=== PATIENT | female | born 1980 | race Caucasian/White ===

== ENCOUNTER 2021-06-29 19:08 | Emergency (ER) | payer OTHER ==
--- NOTE | 2021-06-29 19:16 | ERPHSYRPT ---
- History of Present Illness Time Seen by Provider: 06/29/21 19:16 Historian: patient Exam Limitations: no limitations Physician History: This is a 40-year-old obese white female who underwent appendectomy several years ago and presents with abdominal pain which she describes as right upper quadrant pressure but she also feels it in her lower back into her buttock post eriorly into her legs. She describes as a pressure. It is worse in the last several years. She does not have chest pain. She has not had any nausea vomiting or diarrhea. She does have a history of anxiety and depression. Timing/Duration: worse, other (Present for years) Abdominal Pain Onset Location: RUQ Pain Radiation: back Severity of Pain-Max: mild Severity of Pain-Current: mild Modifying Factors: Improves With: nothing Associated Symptoms: back, No chest pain, No fever/chills, No neck pain, No shortness of breath, No vomiting Previous symptoms: same symptoms as today, no recent treatment Allergies/Adverse Reactions: No Known Drug Allergies Allergy (Verified 06/29/21 19:36) Home Medications: No Reportable Medications [No Reported Medications] 06/29/21 [History] Hx Tetanus, Diphtheria Vaccination/Date Given: Yes Hx Influenza Vaccination/Date Given: No Hx Pneumococcal Vaccination/Date Given: No Travel Risk - International Travel Have you traveled outside of the country in past 3 weeks: No - Coronavirus Screening Are you exhibiting any of the following symptoms?: No Close contact with a COVID-19 positive Pt in past 14-21 Days: No - Review of Systems Constitutional: No Symptoms Eyes: No Symptoms Ears, Nose, & Throat: No Symptoms Respiratory: No Symptoms Cardiac: No Symptoms Abdominal/Gastrointestinal: Abdominal Pain, No Nausea, No Vomiting, No Diarrhea, No Constipation Genitourinary Symptoms: No Symptoms Musculoskeletal: Back Pain Skin: No Symptoms Neurological: No Symptoms Psychological: No Symptoms Endocrine: No Symptoms Hematologic/Lymphatic: No Symptoms Immunological/Allergic: No Symptoms All Other Systems: Reviewed and Negative - Past Medical History Pertinent Past Medical History: No Neurological History: No Pertinent History ENT History: No Pertinent History Cardiac History: No Pertinent History Respiratory History: No Pertinent History Endocrine Medical History: No Pertinent History Musculoskeletal History: No Pertinent History GI Medical History: No Pertinent History History: No Pertinent History Psycho-Social History: Anxiety, Depression Female Reproductive Disorders: No Pertinent History, Other - Past Surgical History Past Surgical History: Yes Neuro Surgical History: No Pertinent History Cardiac: No Pertinent History Respiratory: No Pertinent History Gastrointestinal: Appendectomy Genitourinary: No Pertinent History Musculoskeletal: No Pertinent History Female Surgical History: Other Other Surgical History: dermoid tumor age 14, ectopic - Social History Smoking Status: Former smoker Exposure to second hand smoke: No Drug Use: none Patient Lives Alone: No - Nursing Vital Signs Nursing Vital Signs: Initial Vital Signs Temperature 97.8 F 06/29/21 19:17 Pulse Rate 103 H 06/29/21 19:17 Respiratory Rate 16 06/29/21 19:17 Blood Pressure 101/75 06/29/21 19:17 O2 Sat by Pulse Oximetry 97 06/29/21 19:17 Pain Scale Pain Intensity 0 - Physical Exam General Appearance: no apparent distress, alert, anxiety, obese Eye Exam: PERRL/EOMI, eyes nml inspection Ears, Nose, Throat Exam: normal ENT inspection, moist mucous membranes Neck Exam: normal inspection, non-tender, supple, full range of motion Respiratory Exam: normal breath sounds, lungs clear, airway intact, No chest tenderness, No respiratory distress Cardiovascular Exam: regular rate/rhythm, normal heart sounds, normal peripheral pulses Gastrointestinal/Abdomen Exam: soft, normal bowel sounds, tenderness (Mild right upper quadrant to palpation), No guarding, No rebound Pelvic Exam: not done Rectal Exam: not done Back Exam: normal inspection, normal range of motion, No CVA tenderness, No vertebral tenderness Extremity Exam: normal inspection, normal range of motion, pelvis stable Neurologic Exam: alert, oriented x 3, cooperative, 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, normal mood/affect, nml cerebellar function, nml station & gait, sensation nml Skin Exam: normal color, warm, dry Lymphatic Exam: adenopathy SpO2 Interpretation: normal O2 Delivery: Room Air - Course Nursing assessment & vital signs reviewed: Yes Ordered Tests: Active Orders 24 hr Category Date Time Status IV Insertion STAT Care 06/29/21 19:27 Active ABDOMEN AND PELVIS W/0 CONTRAS [CT] Stat Exams 06/29/21 19:27 Taken AMYLASE Stat Lab 06/29/21 19:46 Completed CBC W DIFF Stat Lab 06/29/21 19:46 Completed CMP Stat Lab 06/29/21 19:46 Completed LIPASE Stat Lab 06/29/21 19:46 Completed Lactic Acid Stat Lab 06/29/21 19:35 Completed UA W/RFX UR CULTURE Stat Lab 06/29/21 19:36 Completed Medication Summary Discontinued Medications Generic Name Dose Route Start Last Admin Trade Name Elliott PRN Reason Stop Dose Admin Sodium Chloride 1,000 mls @ 999 mls/hr 06/29/21 19:27 06/29/21 20:40 Sodium Chloride 0.9% 1000 Ml IV 06/29/21 20:27 Infused .Q1H1M STA Infusion Sodium Chloride Confirm 06/29/21 19:37 Sodium Chloride 0.9% 1000 Ml Administered 06/29/21 19:38 Dose 1,000 mls @ ud .ROUTE .STK-MED ONE Ondansetron HCl 4 mg 06/29/21 19:27 06/29/21 19:39 Ondansetron Hcl 4 Mg/2 Ml Vial IV 06/29/21 19:28 4 mg STAT ONE Administration Ondansetron HCl Confirm 06/29/21 19:37 Ondansetron Hcl 4 Mg/2 Ml Vial Administered 06/29/21 19:38 Dose 4 mg .ROUTE .STK-MED ONE Lab/Rad Data: Laboratory Result Diagrams 06/29/21 19:46 06/29/21 19:46 Laboratory Results 06/29/21 06/29/21 06/29/21 Range/Units 19:46 19:46 19:36 WBC 11.0 H (4.0-10.5) K/mm3 RBC 4.98 (4.1-5.4) M/mm3 Hgb 13.4 (12.0-16.0) gm/dl Hct 42.6 (35-47) % MCV 85.5 (78-100) fl MCH 26.9 (26-32) pg MCHC 31.5 L (32-36) g/dl RDW 15.0 H (11.5-14.0) % Plt Count 350 (150-450) K/mm3 MPV 8.9 (7.5-11.0) fl Gran % 64.9 (36.0-66.0) % Eos # (Auto) 0.30 (0-0.5) Absolute Lymphs (auto) 2.97 (1.0-4.6) Absolute Monos (auto) 0.56 (0.0-1.3) Lymphocytes % 27.0 (24.0-44.0) % Monocytes % 5.1 (0.0-12.0) % Eosinophils % 2.7 (0.00-5.0) % Basophils % 0.3 (0.0-0.4) % Absolute Granulocytes 7.13 H (1.4-6.9) Basophils # 0.03 (0-0.4) Sodium 139 (137-145) mmol/L Potassium 3.8 (3.5-5.1) mmol/L Chloride 105 (98-107) mmol/L Carbon Dioxide 25 (22-30) mmol/L Anion Gap 12.7 (5-15) MEQ/L BUN 14 (7-17) mg/dL Creatinine 0.81 (0.52-1.04) mg/dL Estimated GFR > 60.0 ML/MIN Glucose 104 (74-106) mg/dL Lactic Acid (0.4-2.0) Calcium 8.6 (8.4-10.2) mg/dL Total Bilirubin 0.20 (0.2-1.3) mg/dL AST 21 (14-36) U/L ALT 22 (0-35) U/L Alkaline Phosphatase 119 (38-126) U/L Serum Total Protein 6.1 L (6.3-8.2) g/dL Albumin 3.6 (3.5-5.0) g/dL Amylase 43 (30-110) U/L Lipase 131 (23-300) U/L Urine Color YELLOW (YELLOW) Urine Appearance SLIGHTLY CLOUDY (CLEAR) Urine pH 5.0 (5-6) Ur Specific [place] 1.026 (1.005-1.025) Urine Protein NEGATIVE (Negative) Urine Ketones NEGATIVE (NEGATIVE) Urine Blood NEGATIVE (0-5) [place]/ul Urine Nitrite NEGATIVE (NEGATIVE) Urine Bilirubin NEGATIVE (NEGATIVE) Urine Urobilinogen 2 (0-1) mg/dL Ur Leukocyte Esterase NEGATIVE (NEGATIVE) Urine WBC (Auto) NONE (0-5) /HPF Urine RBC (Auto) NONE (0-2) /HPF U Epithel Cells (Auto) RARE (FEW) /HPF Urine Bacteria (Auto) NONE (NEGATIVE) /HPF Urine Mucus (Auto) SLIGHT (NEGATIVE) /HPF Urine Culture Reflexed NO (NO) Urine Glucose NEGATIVE (NEGATIVE) mg/dL 06/29/21 Range/Units 19:35 WBC (4.0-10.5) K/mm3 RBC (4.1-5.4) M/mm3 Hgb (12.0-16.0) gm/dl Hct (35-47) % MCV (78-100) fl MCH (26-32) pg MCHC (32-36) g/dl RDW (11.5-14.0) % Plt Count (150-450) K/mm3 MPV (7.5-11.0) fl Gran % (36.0-66.0) % Eos # (Auto) (0-0.5) Absolute Lymphs (auto) (1.0-4.6) Absolute Monos (auto) (0.0-1.3) Lymphocytes % (24.0-44.0) % Monocytes % (0.0-12.0) % Eosinophils % (0.00-5.0) % Basophils % (0.0-0.4) % Absolute Granulocytes (1.4-6.9) Basophils # (0-0.4) Sodium (137-145) mmol/L Potassium (3.5-5.1) mmol/L Chloride (98-107) mmol/L Carbon Dioxide (22-30) mmol/L Anion Gap (5-15) MEQ/L BUN (7-17) mg/dL Creatinine (0.52-1.04) mg/dL Estimated GFR ML/MIN Glucose (74-106) mg/dL Lactic Acid 1.4 (0.4-2.0) Calcium (8.4-10.2) mg/dL Total Bilirubin (0.2-1.3) mg/dL AST (14-36) U/L ALT (0-35) U/L Alkaline Phosphatase (38-126) U/L Serum Total Protein (6.3-8.2) g/dL Albumin (3.5-5.0) g/dL Amylase (30-110) U/L Lipase (23-300) U/L Urine Color (YELLOW) Urine Appearance (CLEAR) Urine pH (5-6) Ur Specific [place] (1.005-1.025) Urine Protein (Negative) Urine Ketones (NEGATIVE) Urine Blood (0-5) [place]/ul Urine Nitrite (NEGATIVE) Urine Bilirubin (NEGATIVE) Urine Urobilinogen (0-1) mg/dL Ur Leukocyte Esterase (NEGATIVE) Urine WBC (Auto) (0-5) /HPF Urine RBC (Auto) (0-2) /HPF U Epithel Cells (Auto) (FEW) /HPF Urine Bacteria (Auto) (NEGATIVE) /HPF Urine Mucus (Auto) (NEGATIVE) /HPF Urine Culture Reflexed (NO) Urine Glucose (NEGATIVE) mg/dL - Progress Progress: unchanged, pain not gone completely, re-examined Progress Note: 06/29/21 20:53 CAT scan of the abdomen and pelvis without contrast shows a markedly distended stomach with food. Mild diffuse fecal stasis. Interval enlarging right perium bilical fatty ventral hernia remaining AP negative. No mention of any obstructed bowel. Counseled pt/family regarding: lab results, diagnosis, need for follow-up, rad results - Departure Departure Disposition: Home Clinical Impression: Ventral hernia, Chronic abdominal pain, Constipation Condition: Stable Critical Care Time: No Referrals: KAR CHAMBERLAIN [Primary Care Provider] - Follow up/PCP as directed Additional Instructions: Drink plenty of fluids. May use [id number] medications to help stimulate your bowels to move including MiraLAX, fleets enemas. Follow-up with your primary care physician for further management.
[2021-06-29] MEDS ORDERED: Zofran 4 MG/2 ML VIAL IV ONE (19:27)
[2021-06-29] MEDS ORDERED: Sodium Chloride 0.9% 1000 ML 1,000 ML IV STA (19:27)
[2021-06-29] MEDS ORDERED: Zofran 4 MG/2 ML VIAL ONE (19:37)
[2021-06-29] MEDS ORDERED: Sodium Chloride 0.9% 1000 ML 1,000 ML ONE (19:37)
[2021-06-29 19:50] LABS: Absolute Neutrophil Ct (ANC) 7.13 (1.4-6.9); Basophil (Absolute #) 0.03 (0-0.4); Eosinophil % 2.7 % (0.00-5.0); Hematocrit 42.6 % (35-47); Hemoglobin 13.4 gm/dl (12.0-16.0); Lymphocyte (Absolute #) 2.97 (1.0-4.6); Mean Cell Volume 85.5 fl (78-100); Mean Corpuscular Hemoglobin 26.9 pg (26-32); Mean Corpuscular Hgb Concent. 31.5 g/dl (32-36); Mean Platelet Volume 8.9 fl (7.5-11.0); Monocyte (Absolute #) 0.56 (0.0-1.3); Monocytes % 5.1 % (0.0-12.0); Neutrophil % 64.9 % (36.0-66.0); Platelet Count 350 K/mm3 (150-450); Red Blood Count 4.98 M/mm3 (4.1-5.4)
[2021-06-29 19:51] LABS: Appearance SLIGHTLY CLOUDY (CLEAR); Bilirubin NEGATIVE (NEGATIVE); Blood NEGATIVE Ery/ul (0-5); Epithelial Cells RARE /HPF (FEW); Glucose NEGATIVE (NEGATIVE); Ketones NEGATIVE (NEGATIVE); Leukocyte Esterase NEGATIVE (NEGATIVE); Mucus SLIGHT /HPF (NEGATIVE); Nitrite NEGATIVE (NEGATIVE); Protein,Urine Dip NEGATIVE (Negative); Specific Gravity 1.026 (1.005-1.025); Urobilinogen 2 mg/dL (0-1)
[2021-06-29 20:06] LABS: ALBUMIN 3.6 g/dL (3.5-5.0); ALKALINE PHOSPHATASE 119 U/L (38-126); AMYLASE 43 U/L (30-110); ANION GAP 12.7 MEQ/L (5-15); BLOOD UREA NITROGEN 14 mg/dL (7-17); CHLORIDE 105 mmol/L (98-107); Calcium 8.6 mg/dL (8.4-10.2); Carbon Dioxide 25 mmol/L (22-30); Creatinine 1 0.81 mg/dL (0.52-1.04); EST GLOMERULAR FILTRATION RATE > 60.0 ML/MIN; Glucose 104 mg/dL (74-106); LIPASE 131 U/L (23-300); Potassium 3.8 mmol/L (3.5-5.1); SGOT/AST 21 U/L (14-36); SGPT/ALT 22 U/L (0-35); SODIUM 139 mmol/L (137-145); Total Protein 6.1 g/dL (6.3-8.2)
[2021-06-29 20:14] VITALS: PULSE 96
[2021-06-29 21:03] VITALS: BP 159/80; O2SAT 98
--- NOTE | 2021-06-30 08:55 | XRAY ---
Indication: Abdomen pain/pressure for years. Low back pain. Multiple contiguous axial images obtained through the abdomen and pelvis without contrast. Comparison: February 14, 2015. Lung bases are clear of infiltrate and effusion. Heart not enlarged. Again small hiatal hernia. Stomach is now markedly distended with food/fluid. Noncontrasted stomach and bowel loops appear nonobstructed. There has been appendectomy. There is now mild diffuse scattered colonic fecal debris throughout. Gallbladder contracted without gallstones. No free fluid/air. Remaining liver, gallbladder, pancreas, spleen, adrenal glands, kidneys, ureters, bladder, and uterus are unremarkable for noncontrast exam. Minimal aortic calcifications without AAA. Osseous structures intact again with moderate double curvature thoracolumbar scoliosis. Interval enlarging right periumbilical ventral hernia with increasing herniated omental fat. Impression: 1. Mild diffuse fecal stasis. 2. Enlarging right umbilical fatty ventral hernia. 3. Again incidental small hiatal hernia and double curvature scoliosis.
== END 2021-06-29 21:09 | disposition home or self-care (01) ==
LOC: ED 19:08
DX: R10.11 Right upper quadrant pain (principal); G89.29 Other chronic pain; K43.9 Ventral hernia without obstruction or gangrene; F41.8 Other specified anxiety disorders
CPT/HCPCS: 36000; 36415; 74176; 80053; 81001; 82150; 83605; 83690; 85025; 96374; 99284; J2405

== ENCOUNTER 2021-10-26 07:28 | Day surgery (SDC) | payer OTHER ==
--- NOTE | 2021-10-19 09:37 | HP ---
DATE OF SURGERY: 10/26/2021 HISTORY OF PRESENT ILLNESS: The patient is a 41-year-old female presents with complaints of a hernia. The patient is obese. She has a tiny umbilical hernia on exam. She currently has diastasis. Her hernia is bothering her. She desires repair. She has a soft tissue lipoma on her right upper quadrant. She states this causes some discomfort, appears to be quite deep and a touch on the big side. She desires removal. PAST MEDICAL HISTORY: Depression. PAST SURGICAL HISTORY: None recent. Appendectomy. ALLERGIES: NKDA. MEDICATIONS: Seroquel. FAMILY HISTORY: None reported. SOCIAL HISTORY: None reported. REVIEW OF SYSTEMS: CONSTITUTIONAL: Denies fever or chills. CHEST: Denies shortness of breath. CVS: Denies chest pain. ABDOMEN: Reports umbilical hernia pain. Denies nausea, vomiting, diarrhea, constipation or rectal bleeding. PHYSICAL EXAMINATION: GENERAL: No acute distress. CHEST: Nonlabored. No shortness of breath. CVS: Regular rate and rhythm. ABDOMEN: Soft, small umbilical hernia tender and deep subcutaneous mass on the right upper quadrant. IMPRESSION: 1) Symptomatic umbilical hernia. 2) A right upper quadrant subcutaneous mass. PLAN: Umbilical hernia repair and excision of right upper quadrant subcutaneous mass with Dr. Osmar Singh. As dictated by Manju Melton NP.
[~2021-10-26 07:28] MED LIST: Lactated Ringers 1,000 ML IV SCH; Sensorcaine 0.25% 10 ML ONE
[2021-10-26] MEDS ORDERED: Lactated Ringers 1,000 ML IV ONE (08:10)
[2021-10-26] MEDS ORDERED: SODIUM CHLORIDE 0.9% IV ONE (08:15)
[2021-10-26] MEDS ORDERED: KEFZOL IV ONE (08:15)
[2021-10-26] MEDS ORDERED: Versed 2 MG/2 ML Injection ONE (08:51)
[2021-10-26] MEDS ORDERED: Versed 2 MG/2 ML Injection IV ONE (08:59)
[2021-10-26] MEDS ORDERED: TORAdol 30 mg Injection ONE ×2 (09:58→11:56)
[2021-10-26] MEDS ORDERED: BRIDION 200MG/2ML IV ONE (09:58)
[2021-10-26] MEDS ORDERED: Decadron 4 MG INJ ONE (09:58)
[2021-10-26] MEDS ORDERED: SUBLIMAZE 100 MCG/2 ML ONE ×3 (09:58→11:31)
[2021-10-26] MEDS ORDERED: Zemuron 100 MG/10 ML ONE (09:58)
[2021-10-26] MEDS ORDERED: Xylocaine-Mpf 2% 5 Ml Vial ONE (09:58)
[2021-10-26] MEDS ORDERED: DIPRIVAN 200 MG/20 ML IV ONE (09:58)
[2021-10-26] MEDS ORDERED: Zofran 4 MG/2 ML VIAL ONE (09:58)
[2021-10-26] MEDS ORDERED: KEFZOL 1 GM ONE (11:02)
[2021-10-26] MEDS ORDERED: BACIGUENT 30 GM ONE (11:12)
[2021-10-26] MEDS ORDERED: Hydromorphone 1 mg/ml Injection ONE (11:31)
[2021-10-26] MEDS ORDERED: NORCO 5/325 MG PO PRN (12:44)
[2021-10-26] MEDS ORDERED: NORCO 5/325 MG ONE (12:54)
--- NOTE | 2021-10-26 13:23 | OP ---
SURGERY DATE/TIME: 10/26/2021 1019 PREOPERATIVE DIAGNOSIS: Symptomatic umbilical hernia. POSTOPERATIVE DIAGNOSIS: Symptomatic umbilical hernia. PROCEDURES: 1) Primary umbilical herniorrhaphy. 2) Repair of a moderate size ventral abdominal hernia in the right upper quadrant with mesh through a second incision. SURGEON: Osmar Singh M.D. CONSULTING NURSE: Manju Melton NP. ANESTHESIA: General. COMPLICATIONS: None. CONDITION: Stable. INDICATION: The patient has these two areas, marked preoperatively. They are separate and they are about 8 inches away from each other. DESCRIPTION OF PROCEDURE: She is taken to surgery. General anesthetic. Routine prep and drape. Umbilical defect discovered. The omentum was taken off, was taken with electrocautery. It was dry. The fascial defect approximated with 0 Prolene. Good approximation repair. Skin closed with 4-0 Vicryl and Steri-Strips. Coming down to the right upper quadrant, a 4 inch incision over the top of this. There was a 4 x 4 inch sac. The defect was about an inch. The omentum was taken with LigaSure in this incision about half pound of omentum was taken. A Bicomponent mesh was then popped in and popped up, four quadrant sutures and the mesh defect was able to be closed on top of the mesh and pressure successful ventral herniorrhaphy with mesh. Subcutaneous tissue 3-0 Vicryl. Skin closed with 4-0 Vicryl and Steri-Strips applied. Sterile dressing applied. The patient tolerated the procedure satisfactorily.
[2021-10-26 13:49] VITALS: BP 142/92; PULSE 98; O2SAT 94
== END 2021-10-26 13:35 | disposition home or self-care (01) ==
LOC: SDC 07:28
PROVIDERS: ATTEND Surgery
DX: K42.9 Umbilical hernia without obstruction or gangrene (principal); K43.9 Ventral hernia without obstruction or gangrene
CPT/HCPCS: 49560; 49568; 49587; 84703; C1781; J0690; J1100; J1170; J1885; J2250; J2405; J2704; J3010; L0625; A9270-GY

== ENCOUNTER 2022-10-30 14:57 | Emergency (ER) | payer OTHER ==
[2022-10-30 15:35] LABS: Appearance Clear (Clear); Bacteria None Seen /HPF (None Seen); Bilirubin Negative (Negative); Blood Negative (Negative); Epithelial Cells Rare /HPF (None Seen); Glucose, Urine Negative (Negative); Hyaline Casts NONE SEEN /LPF (0-2); Ketones Trace (Negative); Leukocyte Esterase Negative (Negative); Nitrite Negative (Negative); Ph 5.5 (4.6-8.0); Protein,Urine Dip Negative (Negative); RBC 0-2 /HPF (0-5); Specific Gravity 1.025 (1.005-1.030); WBC 0-2 /HPF (0-5)
[2022-10-30] MEDS ORDERED: TORAdol 30 mg Injection IV ONE (15:37)
[2022-10-30] MEDS ORDERED: Zofran 4 MG/2 ML VIAL IV ONE (15:38)
[2022-10-30] MEDS ORDERED: Zofran 4 MG/2 ML VIAL ONE (15:39)
[2022-10-30] MEDS ORDERED: TORAdol 30 mg Injection ONE (15:39)
[2022-10-30 15:43] LABS: ADD URINE CULTURE? NO (NO)
[2022-10-30 15:43] LABS: Absolute Neutrophil Ct (ANC) 7.53 x10^3/uL (1.4-6.9); BASOPHIL % 0.5 % (0.0-0.4); Basophil (Absolute #) 0.05 x10^3/uL (0-0.4); Eosinophil % 1.4 % (0.00-5.0); Eosinophil (Absolute #) 0.15 x10^3/uL (0-0.5); Hematocrit 42.6 % (35-47); Hemoglobin 13.5 g/dL (12.0-16.0); IMMATURE GRAN # 0.06 x10^3u/L (0.00-0.03); IMMATURE GRAN % 0.6 % (0.00-0.4); Lymphocyte (Absolute #) 2.38 x10^3/uL (1.0-4.6); Lymphocytes % 22.6 % (24.0-44.0); Mean Cell Volume 86.9 fL (78-100); Mean Corpuscular Hemoglobin 27.6 pg (26-32); Mean Corpuscular Hgb Concent. 31.7 g/dL (32-36); Mean Platelet Volume 8.8 fL (7.5-11.0); Monocyte (Absolute #) 0.38 x10^3/uL (0.0-1.3); Monocytes % 3.6 % (0.0-12.0); Neutrophil % 71.3 % (36.0-66.0); Platelet Count 355 x10^3/uL (150-450); Red Cell Distribution Width 14.6 % (11.5-14.0); White Blood Count 10.6 x10^3/uL (4.0-10.5)
[2022-10-30] MEDS ORDERED: Sodium Chloride 0.9% 1000 ML 1,000 ML IV STA (15:46)
[2022-10-30] MEDS ORDERED: Sodium Chloride 0.9% 1000 ML 1,000 ML ONE (15:47)
[2022-10-30 15:56] LABS: ALBUMIN 3.4 g/dL (3.5-5.0); ALKALINE PHOSPHATASE 91 U/L (38-126); ANION GAP 14.2 MEQ/L (5-15); BLOOD UREA NITROGEN 11 mg/dL (7-17); CHLORIDE 107 mmol/L (98-107); Calcium 8.7 mg/dL (8.4-10.2); Carbon Dioxide 23 mmol/L (22-30); Creatinine 1 0.55 mg/dL (0.52-1.04); EST GLOMERULAR FILTRATION RATE > 60.0 ML/MIN; Glucose 98 mg/dL (74-106); Potassium 4.4 mmol/L (3.5-5.1); SGOT/AST 26 U/L (14-36); SGPT/ALT 30 U/L (0-35); SODIUM 139 mmol/L (137-145); Total Protein 6.1 g/dL (6.3-8.2)
--- NOTE | 2022-10-30 15:58 | ERPHSYRPT ---
- History of Present Illness Time Seen by Provider: 10/30/22 15:20 Historian: patient Exam Limitations: no limitations Patient Subjective Stated Complaint: Pt states "I have been fighting UTI's for the past month and none of the medicines are working. I have horrible kidney pain." Triage Nursing Assessment: Pt presented alert and oriented X 3, skin pwd. Pt ambulates with an upright steady gait, able to speak in clear full sentences. Pt in no apparent respiratory distress. Pt resting comfortably on the bed. Physician History: Please a 42-year-old female presents to our ED for evaluation of bilateral flank pain x2 days. Patient states she has been experiencing recurrent UTIs over the past couple months. Patient has received several rounds of antibiotics. Patient feels that her UTI has not resolved although she has not gone recheck since her last urinary tract infection. Patient believes her bilateral flank p ain is due to urinary tract infection. No history of ureterolithiasis. Patient's symptoms are mild to moderate in intensity. No specific worsening improving factors. Patient denies a history of the same otherwise. No trauma. No fever. No nausea vomiting or diaphoresis. Patient denies abdominal pain. Patient states she is otherwise healthy. She voices no other complaints or concerns at this time. Portions of this note were created with voice recognition technology. There may be grammatical, spelling, punctuation or sound alike errors Patient presenting symptom is acute. Complexity of problem addressed is moderate. Acute, complicated with systemic manifestations. No critical care time. Complexity of data reviewed and analyzed is moderate. Test ordered. Test independently reviewed by Dr. Valdez. Patient served as independent historian. Risk of complication and or risk morbidity/mortality of patient management is moderate. Patient received IV fluids, Zofran and IV Toradol, prescription great for pain control. Patient declined additional pain medication. No social determinants of health present to impede follow-up. Plan of care established via shared decision making. Patient agrees to follow-up with her primary care doctor within 48 hours for reevaluation. Vital stable. Spent to discharge patient is approximately 10 minutes. Portions of this note were created with voice recognition technology. There may be grammatical, spelling, punctuation or sound alike errors Timing/Duration: day(s) Activities at Onset: none Quality: aching Abdominal Pain Onset Location: flank Pain Radiation: no radiation Severity of Pain-Max: moderate Severity of Pain-Current: mild Modifying Factors: Improves With: nothing Associated Symptoms: denies symptoms Previous symptoms: no prior history Allergies/Adverse Reactions: No Known Drug Allergies Allergy (Verified 10/26/21 07:51) Home Medications: Lisdexamfetamine Dimesylate [Vyvanse] 30 mg PO DAILY 10/30/22 [History] Semaglutide [Ozempic] 1 mg SQ WEEKLY 10/30/22 [History] Hx Tetanus, Diphtheria Vaccination/Date Given: Yes Hx Influenza Vaccination/Date Given: No Hx Pneumococcal Vaccination/Date Given: No Travel Risk - International Travel Have you traveled outside of the country in past 3 weeks: No - Coronavirus Screening Are you exhibiting any of the following symptoms?: No Close contact with a COVID-19 positive Pt in past 14-21 Days: No - Vaccine Status Have you recieved a Covid-19 vaccination: No - Review of Systems Constitutional: No Symptoms, No Fever, No Chills Eyes: No Symptoms Ears, Nose, & Throat: No Symptoms Respiratory: No Symptoms, No Cough, No Dyspnea Cardiac: No Symptoms, No Chest Pain, No Edema, No Syncope Abdominal/Gastrointestinal: No Symptoms, No Abdominal Pain, No Nausea, No Vomiting, No Diarrhea Genitourinary Symptoms: No Symptoms, No Dysuria Musculoskeletal: No Symptoms, No Back Pain, No Neck Pain Skin: No Symptoms, No Rash Neurological: No Symptoms, No Dizziness, No Focal Weakness, No Sensory Changes Psychological: No Symptoms Endocrine: No Symptoms Hematologic/Lymphatic: No Symptoms Immunological/Allergic: No Symptoms All Other Systems: Reviewed and Negative - Past Medical History Pertinent Past Medical History: No Neurological History: No Pertinent History ENT History: No Pertinent History Cardiac History: No Pertinent History Respiratory History: No Pertinent History Endocrine Medical History: No Pertinent History Musculoskeletal History: No Pertinent History GI Medical History: No Pertinent History History: No Pertinent History Psycho-Social History: Anxiety, Bipolar, Depression Female Reproductive Disorders: No Pertinent History, Other Other Medical History: hiatal hernia,schizophrenia - Past Surgical History Past Surgical History: Yes Neuro Surgical History: No Pertinent History Cardiac: No Pertinent History Respiratory: No Pertinent History Gastrointestinal: Appendectomy Genitourinary: No Pertinent History Musculoskeletal: No Pertinent History Female Surgical History: Other Other Surgical History: dermoid tumor age 14, ectopic ,ablation, tube and ovary removed - Social History Smoking Status: Current every day smoker How long have you smoked: 4 Exposure to second hand smoke: Yes Drug Use: none Patient Lives Alone: Yes - Female History Hx Last Menstrual Period: ablasion Hx Now: No - Nursing Vital Signs Nursing Vital Signs: Initial Vital Signs Temperature 97.3 F 10/30/22 15:06 Pulse Rate 97 H 10/30/22 15:06 Respiratory Rate 22 10/30/22 15:06 Blood Pressure 93/73 10/30/22 15:06 O2 Sat by Pulse Oximetry 97 10/30/22 15:06 Pain Scale Pain Intensity 4 - Physical Exam General Appearance: no apparent distress, alert Eye Exam: PERRL/EOMI, eyes nml inspection Ears, Nose, Throat Exam: normal ENT inspection, pharynx normal, moist mucous membranes Neck Exam: normal inspection, non-tender, supple, full range of motion Respiratory Exam: normal breath sounds, lungs clear, airway intact, No respiratory distress Cardiovascular Exam: regular rate/rhythm, normal heart sounds, normal peripheral pulses Gastrointestinal/Abdomen Exam: soft, normal bowel sounds, other (Well-healed right abdominal surgical scar from recent tumor resection), No tenderness, No mass Back Exam: normal inspection, normal range of motion, No CVA tenderness, No vertebral tenderness Extremity Exam: normal inspection, normal range of motion, pelvis stable Neurologic Exam: alert, oriented x 3, cooperative, normal mood/affect, nml cerebellar function, sensation nml, No motor deficits Skin Exam: normal color, warm, dry Lymphatic Exam: No adenopathy SpO2 Interpretation: normal SpO2: 97 O2 Delivery: Room Air - Course Nursing assessment & vital signs reviewed: Yes - Radiology Exams Abdomen X-ray Interpretation: Teleradiologist Report (2.6 cm left ovarian cyst. Right mid abdomen ventral hernia repair, double curvature scoliosis and minimal aortic calcifications) Ordered Tests: Active Orders 24 hr Category Date Time Status IV Insertion STAT Care 10/30/22 15:37 Active ABDOMEN AND PELVIS W/0 CONTRAS [CT] Stat Exams 10/30/22 15:18 Completed CBC W DIFF Stat Lab 10/30/22 15:25 Completed CMP Stat Lab 10/30/22 15:25 Completed UA W/RFX UR CULTURE Stat Lab 10/30/22 15:22 Completed Medication Summary Discontinued Medications Generic Name Dose Route Start Last Admin Trade Name Freq PRN Reason Stop Dose Admin Sodium Chloride 1,000 mls @ 999 mls/hr 10/30/22 15:46 10/30/22 15:48 Sodium Chloride 0.9% 1000 Ml IV 10/30/22 16:46 999 mls/hr .Q1H1M STA Administration Sodium Chloride Confirm 10/30/22 15:47 Sodium Chloride 0.9% 1000 Ml Administered 10/30/22 15:48 Dose 1,000 mls @ ud .ROUTE .STK-MED ONE Ketorolac Tromethamine 30 mg 10/30/22 15:37 10/30/22 15:40 Ketorolac Tromethamine 30 Mg/Ml Inj IV 10/30/22 15:38 30 mg STAT ONE Administration Ketorolac Tromethamine Confirm 10/30/22 15:39 Ketorolac Tromethamine 30 Mg/Ml Inj Administered 10/30/22 15:40 Dose 30 mg .ROUTE .STK-MED ONE Ondansetron HCl 4 mg 10/30/22 15:38 10/30/22 15:40 Ondansetron Hcl 4 Mg/2 Ml Vial IV 10/30/22 15:39 4 mg STAT ONE Administration Ondansetron HCl Confirm 10/30/22 15:39 Ondansetron Hcl 4 Mg/2 Ml Vial Administered 10/30/22 15:40 Dose 4 mg .ROUTE .STK-MED ONE Lab/Rad Data: Laboratory Result Diagrams 10/30/22 15:25 10/30/22 15:25 Laboratory Results 10/30/22 10/30/22 10/30/22 Range/Units 15:25 15:25 15:22 WBC 10.6 H (4.0-10.5) x10^3/uL RBC 4.90 (4.1-5.4) x10^6/uL Hgb 13.5 (12.0-16.0) g/dL Hct 42.6 (35-47) % MCV 86.9 (78-100) fL MCH 27.6 (26-32) pg MCHC 31.7 L (32-36) g/dL RDW 14.6 H (11.5-14.0) % Plt Count 355 (150-450) x10^3/uL MPV 8.8 (7.5-11.0) fL Gran % 71.3 H (36.0-66.0) % Immature Gran % (Auto) 0.6 H (0.00-0.4) % Nucleat RBC Rel Count 0.0 (0.00-0.1) % Eos # (Auto) 0.15 (0-0.5) x10^3/uL Immature Gran # (Auto) 0.06 H (0.00-0.03) x10^3u/L Absolute Lymphs (auto) 2.38 (1.0-4.6) x10^3/uL Absolute Monos (auto) 0.38 (0.0-1.3) x10^3/uL Absolute Nucleated RBC 0.00 (0.00-0.01) x10^3u/L Lymphocytes % 22.6 L (24.0-44.0) % Monocytes % 3.6 (0.0-12.0) % Eosinophils % 1.4 (0.00-5.0) % Basophils % 0.5 (0.0-0.4) % Absolute Granulocytes 7.53 H (1.4-6.9) x10^3/uL Basophils # 0.05 (0-0.4) x10^3/uL Sodium 139 (137-145) mmol/L Potassium 4.4 (3.5-5.1) mmol/L Chloride 107 (98-107) mmol/L Carbon Dioxide 23 (22-30) mmol/L Anion Gap 14.2 (5-15) MEQ/L BUN 11 (7-17) mg/dL Creatinine 0.55 (0.52-1.04) mg/dL Estimated GFR > 60.0 ML/MIN Glucose 98 (74-106) mg/dL Calcium 8.7 (8.4-10.2) mg/dL Total Bilirubin 0.30 (0.2-1.3) mg/dL AST 26 (14-36) U/L ALT 30 (0-35) U/L Alkaline Phosphatase 91 (38-126) U/L Serum Total Protein 6.1 L (6.3-8.2) g/dL Albumin 3.4 L (3.5-5.0) g/dL Urine Color Yellow (Yellow) Urine Appearance Clear (Clear) Urine pH 5.5 (4.6-8.0) Ur Specific [place] 1.025 (1.005-1.030) Urine Protein Negative (Negative) Urine Glucose (UA) Negative (Negative) mg/dL Urine Ketones Trace A (Negative) Urine Blood Negative (Negative) Urine Nitrite Negative (Negative) Urine Bilirubin Negative (Negative) Urine Urobilinogen 1.0 A (0.2) mg/dL Ur Leukocyte Esterase Negative (Negative) U Hyaline Cast (Auto) NONE SEEN (0-2) /LPF Urine Microscopic RBC 0-2 (0-5) /HPF Urine Microscopic WBC 0-2 (0-5) /HPF Ur Epithelial Cells Rare (None Seen) /HPF Urine Bacteria None Seen (None Seen) /HPF Urine Culture Reflexed NO (NO) - Progress Progress: improved Progress Note: Patient is a 42-year-old female presents to our ED for evaluation of flank pain. Work-up reveals dehydration. No urinary tract infection. CT scan reveals a 2.6 cm left ovarian cyst otherwise no acute pathology observed. We offered patient Toradol and Zofran for home. Patient declined. 10/30/22 16:44 Counseled pt/family regarding: lab results, diagnosis, need for follow-up, rad results - Departure Departure Disposition: Home Clinical Impression: Flank pain, Left ovarian cyst, Double coverage for scoliosis, Minimal aortic calcifications, Dehydration Condition: Stable Critical Care Time: No Referrals: JULIANA SANTIAGO MD [Primary Care Provider] - Follow up/PCP as directed Instructions: Flank Pain Additional Instructions: Discharge/Care Plan SEKOU JULES was seen on 10/30/22 in the Emergency Room. The patient was counseled regarding Diagnosis,Lab results, Imaging studies, need for follow up and when to return to the Emergency Room. Prescriptions given: Discharge Note I have spoken with the patient and/or caregivers. I have explained the patient's condition, diagnosis and treatment plan based on the information available to me at this time. I have answered the patient's and/or caregiver's questions and addressed any concerns. The patient and/or caregivers have as good understanding of the patient's diagnosis, condition and treatment plan as can be expected at this point. The vital signs have been stable. The patient's condition is stable and appropriate for discharge from the emergency department. The patient will pursue further outpatient evaluation with the primary care physician or other designated or consulting physician as outlined in the discharge instructions. The patient and/or caregivers are agreeable to this plan of care and follow-up instructions have been explained in detail. The patient and/or caregivers have received these instruction. The patient/and or caregivers are aware that any significant change in condition or worsening of symptoms should prompt an immediate return to this or the closest emergency department or call 911.
--- NOTE | 2022-10-30 16:19 | XRAY ---
Indication: Bilateral kidney pain. Multiple contiguous axial images obtained through the abdomen and pelvis without contrast. Comparison: June 29, 2021 Lung bases clear. Heart not enlarged. Stomach is markedly distended with food/fluid. Noncontrasted bowel loops appear nonobstructed again with appendectomy. Gallbladder contracted without gallstones. 2.6 cm left ovary cyst. No free fluid/air. Remaining liver, pancreas, spleen, adrenal glands, kidneys, ureters, bladder, and uterus are unremarkable for noncontrast exam. Again minimal aortic calcifications without AAA. Osseous structures intact again with double curvature scoliosis. There has been interval right midabdomen ventral hernia repair without complications. Impression: 1. Markedly distended stomach with food/fluid presumed from recent ingestion. Gastroparesis not completely excluded in the right clinical setting. 2. Again double curvature scoliosis and minimal aortic calcifications. 3. Remaining CT abdomen/pelvis without contrast exam continues to be negative.
[2022-10-30 16:46] VITALS: BP 113/85; PULSE 80
[2022-10-30 16:47] VITALS: O2SAT 97
== END 2022-10-30 16:50 | disposition home or self-care (01) ==
LOC: ED 14:57
DX: R10.9 Unspecified abdominal pain (principal); N83.202 Unspecified ovarian cyst, left side; I70.0 Atherosclerosis of aorta; E86.0 Dehydration; M41.80 Other forms of scoliosis, site unspecified; Z79.85 Long-term (current) use of injectable non-insulin antidiabetic drugs; Z79.899 Other long term (current) drug therapy; Z28.310 Unvaccinated for COVID-19; Z72.0 Tobacco use
CPT/HCPCS: 36000; 36415; 74176; 80053; 81001; 85025; 96374; 96375; 99284; J1885; J2405

== ENCOUNTER 2022-12-05 15:19 | Emergency (ER) | payer OTHER ==
--- NOTE | 2022-12-05 15:25 | ERPHSYRPT ---
- History of Present Illness Time Seen by Provider: 12/05/22 15:25 Historian: patient Exam Limitations: no limitations Physician History: This is a morbidly obese 42-year-old white female patient of Dr. Santiago who was diagnosed with left ovarian cyst measuring 2.6 cm on 10/30/2022. She has not followed up to see Dr. Santiago or music supervisor for this issue. Patient is on Oz empic. Patient has a history of bipolar disorder and anxiety issues. She also has a history of recurrent UTIs. Patient has had a right salpingo-oophorectomy in the past. She is a daily smoker of cigarettes. She also has recurrent history of flank pain. Today, she had worsening left suprapubic/lower quadrant ABD pain and associated left flank pain. She called Dr. Santiago. They could not see her today so she was told to come to the emergency department for evaluation. Patient has not had any nausea vomiting or diarrhea symptoms. She has not had any vaginal discharge. She has had not had any cough. She denies chest pain. She denies shortness of breath. Timing/Duration: today Activities at Onset: none Quality: aching Abdominal Pain Onset Location: LLQ, suprapubic (Left) Pain Radiation: flank (Left) Severity of Pain-Max: mild (To moderate) Severity of Pain-Current: mild (To moderate) Modifying Factors: Improves With: nothing Associated Symptoms: denies symptoms Previous symptoms: same symptoms as today, recently seen, recently treated Allergies/Adverse Reactions: No Known Drug Allergies Allergy (Verified 12/05/22 15:38) Home Medications: Lisdexamfetamine Dimesylate [Vyvanse] 30 mg PO DAILY 10/30/22 [History] Semaglutide [Ozempic] 1 mg SQ WEEKLY 10/30/22 [History] Escitalopram Oxalate [Lexapro] 1 tab PO DAILY 12/05/22 [History] Olanzapine/Samidorphan Malate [Lybalvi 10-10 mg Tablet] 1 tab PO HS 12/05/22 [History] Hx Tetanus, Diphtheria Vaccination/Date Given: Yes Hx Influenza Vaccination/Date Given: No Hx Pneumococcal Vaccination/Date Given: No Travel Risk - International Travel Have you traveled outside of the country in past 3 weeks: No - Coronavirus Screening Are you exhibiting any of the following symptoms?: No Close contact with a COVID-19 positive Pt in past 14-21 Days: No - Vaccine Status Have you recieved a Covid-19 vaccination: No - Review of Systems Constitutional: No Symptoms Eyes: No Symptoms Ears, Nose, & Throat: No Symptoms Respiratory: No Symptoms Cardiac: No Symptoms Abdominal/Gastrointestinal: Abdominal Pain (Left suprapubic/left lower quadrant abdominal pain) Genitourinary Symptoms: No Symptoms, Flank Pain (Left) Musculoskeletal: No Symptoms Skin: No Symptoms Neurological: No Symptoms Psychological: No Symptoms Endocrine: No Symptoms Hematologic/Lymphatic: No Symptoms Immunological/Allergic: No Symptoms All Other Systems: Reviewed and Negative - Past Medical History Pertinent Past Medical History: No Neurological History: No Pertinent History ENT History: No Pertinent History Cardiac History: No Pertinent History Respiratory History: No Pertinent History Endocrine Medical History: No Pertinent History Musculoskeletal History: No Pertinent History GI Medical History: No Pertinent History History: No Pertinent History Psycho-Social History: Anxiety, Bipolar, Depression Female Reproductive Disorders: No Pertinent History, Other Other Medical History: hiatal hernia,schizophrenia - Past Surgical History Past Surgical History: Yes Neuro Surgical History: No Pertinent History Cardiac: No Pertinent History Respiratory: No Pertinent History Gastrointestinal: Appendectomy Genitourinary: No Pertinent History Musculoskeletal: No Pertinent History Female Surgical History: Other Other Surgical History: dermoid tumor age 14, ectopic ,ablation, tube and ovary removed - Social History Smoking Status: Current every day smoker How long have you smoked: 4 Exposure to second hand smoke: Yes Drug Use: none Patient Lives Alone: Yes - Nursing Vital Signs Nursing Vital Signs: Initial Vital Signs Temperature 97.7 F 12/05/22 15:39 Pulse Rate 93 H 12/05/22 15:39 Respiratory Rate 18 12/05/22 15:39 Blood Pressure 122/89 12/05/22 15:39 O2 Sat by Pulse Oximetry 94 L 12/05/22 15:39 Pain Scale Pain Intensity 8 - Physical Exam General Appearance: no apparent distress, alert, anxiety, obese Eye Exam: PERRL/EOMI, eyes nml inspection Ears, Nose, Throat Exam: normal ENT inspection, moist mucous membranes Neck Exam: normal inspection, non-tender, supple, full range of motion Respiratory Exam: normal breath sounds, lungs clear, airway intact, No chest tenderness, No respiratory distress Cardiovascular Exam: regular rate/rhythm, normal heart sounds, normal peripheral pulses Gastrointestinal/Abdomen Exam: soft, normal bowel sounds, tenderness (Mild tenderness to palpation left lower quadrant, left flank and left suprapubic region.), guarding (Same), No rebound Pelvic Exam: not done Rectal Exam: not done Back Exam: normal inspection, normal range of motion, No CVA tenderness, No vertebral tenderness Extremity Exam: normal inspection, normal range of motion, pelvis stable Neurologic Exam: alert, oriented x 3, cooperative, pain management nurse practitioner II-XII nml as tested, normal mood/affect, nml cerebellar function, nml station & gait, sensation nml Skin Exam: normal color, warm, dry Lymphatic Exam: No adenopathy SpO2 Interpretation: borderline oxygenation O2 Delivery: Room Air - Course Nursing assessment & vital signs reviewed: Yes Ordered Tests: Active Orders 24 hr Category Date Time Status IV Insertion STAT Care 12/05/22 15:59 Active ABDOMEN AND PELVIS W/0 CONTRAS [CT] Stat Exams 12/05/22 15:58 Completed AMYLASE Stat Lab 12/05/22 16:15 Completed CBC W DIFF Stat Lab 12/05/22 16:15 Completed CMP Stat Lab 12/05/22 16:15 Completed HCG QUALITATIVE, URINE Stat Lab 12/05/22 15:57 Completed LIPASE Stat Lab 12/05/22 16:15 Completed UA W/RFX UR CULTURE Stat Lab 12/05/22 15:59 Completed Lab/Rad Data: Laboratory Result Diagrams 12/05/22 16:15 12/05/22 16:15 Laboratory Results 12/05/22 12/05/22 12/05/22 Range/Units 16:15 16:15 15:59 WBC 11.8 H (4.0-10.5) x10^3/uL RBC 4.58 (4.1-5.4) x10^6/uL Hgb 12.6 (12.0-16.0) g/dL Hct 40.6 (35-47) % MCV 88.6 (78-100) fL MCH 27.5 (26-32) pg MCHC 31.0 L (32-36) g/dL RDW 15.0 H (11.5-14.0) % Plt Count 311 (150-450) x10^3/uL MPV 8.3 (7.5-11.0) fL Gran % 74.4 H (36.0-66.0) % Immature Gran % (Auto) 0.8 H (0.00-0.4) % Nucleat RBC Rel Count 0.0 (0.00-0.1) % Eos # (Auto) 0.24 (0-0.5) x10^3/uL Immature Gran # (Auto) 0.10 H (0.00-0.03) x10^3u/L Absolute Lymphs (auto) 2.33 (1.0-4.6) x10^3/uL Absolute Monos (auto) 0.33 (0.0-1.3) x10^3/uL Absolute Nucleated RBC 0.00 (0.00-0.01) x10^3u/L Lymphocytes % 19.7 L (24.0-44.0) % Monocytes % 2.8 (0.0-12.0) % Eosinophils % 2.0 (0.00-5.0) % Basophils % 0.3 (0.0-0.4) % Absolute Granulocytes 8.76 H (1.4-6.9) x10^3/uL Basophils # 0.04 (0-0.4) x10^3/uL Sodium 138 (137-145) mmol/L Potassium 4.1 (3.5-5.1) mmol/L Chloride 105 (98-107) mmol/L Carbon Dioxide 25 (22-30) mmol/L Anion Gap 11.9 (5-15) MEQ/L BUN 14 (7-17) mg/dL Creatinine 0.69 (0.52-1.04) mg/dL Estimated GFR > 60.0 ML/MIN Glucose 108 H (74-106) mg/dL Calcium 8.2 L (8.4-10.2) mg/dL Total Bilirubin 0.20 (0.2-1.3) mg/dL AST 22 (14-36) U/L ALT 22 (0-35) U/L Alkaline Phosphatase 98 (38-126) U/L Serum Total Protein 6.3 (6.3-8.2) g/dL Albumin 3.4 L (3.5-5.0) g/dL Amylase 52 (30-110) U/L Lipase 119 (23-300) U/L Urine Color Yellow (Yellow) Urine Appearance Clear (Clear) Urine pH 6.0 (4.6-8.0) Ur Specific Doyle 1.025 (1.005-1.030) Urine Protein Negative (Negative) Urine Glucose (UA) Negative (Negative) mg/dL Urine Ketones Negative (Negative) Urine Blood Negative (Negative) Urine Nitrite Negative (Negative) Urine Bilirubin Negative (Negative) Urine Urobilinogen 1.0 A (0.2) mg/dL Ur Leukocyte Esterase Small A (Negative) U Hyaline Cast (Auto) NONE SEEN (0-2) /LPF Urine Microscopic RBC 0-2 (0-5) /HPF Urine Microscopic WBC 3-5 (0-5) /HPF Ur Epithelial Cells Few (None Seen) /HPF Urine Bacteria Few A (None Seen) /HPF Urine Culture Reflexed NO (NO) Urine HCG, Qual (NEGATIVE) 12/05/22 Range/Units 15:57 WBC (4.0-10.5) x10^3/uL RBC (4.1-5.4) x10^6/uL Hgb (12.0-16.0) g/dL Hct (35-47) % MCV (78-100) fL MCH (26-32) pg MCHC (32-36) g/dL RDW (11.5-14.0) % Plt Count (150-450) x10^3/uL MPV (7.5-11.0) fL Gran % (36.0-66.0) % Immature Gran % (Auto) (0.00-0.4) % Nucleat RBC Rel Count (0.00-0.1) % Eos # (Auto) (0-0.5) x10^3/uL Immature Gran # (Auto) (0.00-0.03) x10^3u/L Absolute Lymphs (auto) (1.0-4.6) x10^3/uL Absolute Monos (auto) (0.0-1.3) x10^3/uL Absolute Nucleated RBC (0.00-0.01) x10^3u/L Lymphocytes % (24.0-44.0) % Monocytes % (0.0-12.0) % Eosinophils % (0.00-5.0) % Basophils % (0.0-0.4) % Absolute Granulocytes (1.4-6.9) x10^3/uL Basophils # (0-0.4) x10^3/uL Sodium (137-145) mmol/L Potassium (3.5-5.1) mmol/L Chloride (98-107) mmol/L Carbon Dioxide (22-30) mmol/L Anion Gap (5-15) MEQ/L BUN (7-17) mg/dL Creatinine (0.52-1.04) mg/dL Estimated GFR ML/MIN Glucose (74-106) mg/dL Calcium (8.4-10.2) mg/dL Total Bilirubin (0.2-1.3) mg/dL AST (14-36) U/L ALT (0-35) U/L Alkaline Phosphatase (38-126) U/L Serum Total Protein (6.3-8.2) g/dL Albumin (3.5-5.0) g/dL Amylase (30-110) U/L Lipase (23-300) U/L Urine Color (Yellow) Urine Appearance (Clear) Urine pH (4.6-8.0) Ur Specific Doyle (1.005-1.030) Urine Protein (Negative) Urine Glucose (UA) (Negative) mg/dL Urine Ketones (Negative) Urine Blood (Negative) Urine Nitrite (Negative) Urine Bilirubin (Negative) Urine Urobilinogen (0.2) mg/dL Ur Leukocyte Esterase (Negative) U Hyaline Cast (Auto) (0-2) /LPF Urine Microscopic RBC (0-5) /HPF Urine Microscopic WBC (0-5) /HPF Ur Epithelial Cells (None Seen) /HPF Urine Bacteria (None Seen) /HPF Urine Culture Reflexed (NO) Urine HCG, Qual NEGATIVE (NEGATIVE) - Progress Progress: unchanged, pain not gone completely, re-examined Progress Note: 12/05/22 18:35 This patient's medical issue is 1 of moderate complexity. Level of complexity and the work-up performed is based on the review of the patient's past medical history, review of the patient's past laboratory and radiographic study impressions, medication list, drug allergy list, history present illness and physical findings on examination. The work-up in this patient includes placement of an intravenous line, CBC, CMP, urinalysis, CT scan of the abdomen pelvis without contrast. I reviewed the results of the studies. The patient does have a 4 cm x 4 cm left adnexal abnormality which the radiologist recommends M RI of. This can be done as an outpatient. Patient will be given a prescription of War 5/325 and is instructed to follow-up with her music supervisor or primary care provider tomorrow to make arrangements for follow-up appointment. Counseled pt/family regarding: lab results, diagnosis, need for follow-up, rad results Medical Desision Making - Diagnostic Testing Diagnostic test were ordered, analyzed, and reviewed by me: Yes Radiological Interpretation: Reviewed by me, Teleradiologist Report - Risk of complications The pt has a mod risk of morbidity or mortality based on: Need for prescription drug management - Departure Departure Disposition: Home Clinical Impression: Adnexal tenderness, left Condition: Stable Critical Care Time: No Referrals: JULIANA SANTIAGO MD [Primary Care Provider] - Follow up/PCP as directed Additional Instructions: Drink plenty fluids. Add ibuprofen 600 mg with food 3 times a day for 5 days. Follow-up with your music supervisor or primary care provider tomorrow, 12/06/2022 to further evaluate the left fallopian tube/ovary (adnexa) abnormality discussed with you today in the emergency department. Take your medications as prescribed. Prescriptions: Hydrocodone/APAP 5/325 [War 5/325 mg] 1 each PO Q8H PRN PRN #6 tablet MDD 3 PRN Reason: Pain
[2022-12-05 16:17] LABS: Absolute Neutrophil Ct (ANC) 8.76 x10^3/uL (1.4-6.9); BASOPHIL % 0.3 % (0.0-0.4); Basophil (Absolute #) 0.04 x10^3/uL (0-0.4); Eosinophil (Absolute #) 0.24 x10^3/uL (0-0.5); Hematocrit 40.6 % (35-47); Hemoglobin 12.6 g/dL (12.0-16.0); IMMATURE GRAN % 0.8 % (0.00-0.4); Lymphocyte (Absolute #) 2.33 x10^3/uL (1.0-4.6); Lymphocytes % 19.7 % (24.0-44.0); Mean Cell Volume 88.6 fL (78-100); Mean Corpuscular Hemoglobin 27.5 pg (26-32); Mean Platelet Volume 8.3 fL (7.5-11.0); Monocyte (Absolute #) 0.33 x10^3/uL (0.0-1.3); Monocytes % 2.8 % (0.0-12.0); Neutrophil % 74.4 % (36.0-66.0); Platelet Count 311 x10^3/uL (150-450); Red Blood Count 4.58 x10^6/uL (4.1-5.4); White Blood Count 11.8 x10^3/uL (4.0-10.5)
[2022-12-05 16:21] LABS: HCG URINE TEST NEGATIVE (NEGATIVE)
[2022-12-05 16:28] VITALS: O2SAT 96
[2022-12-05 16:30] LABS: ALBUMIN 3.4 g/dL (3.5-5.0); ALKALINE PHOSPHATASE 98 U/L (38-126); AMYLASE 52 U/L (30-110); ANION GAP 11.9 MEQ/L (5-15); BLOOD UREA NITROGEN 14 mg/dL (7-17); CHLORIDE 105 mmol/L (98-107); Calcium 8.2 mg/dL (8.4-10.2); Carbon Dioxide 25 mmol/L (22-30); Creatinine 1 0.69 mg/dL (0.52-1.04); EST GLOMERULAR FILTRATION RATE > 60.0 ML/MIN; Glucose 108 mg/dL (74-106); LIPASE 119 U/L (23-300); Potassium 4.1 mmol/L (3.5-5.1); SGOT/AST 22 U/L (14-36); SGPT/ALT 22 U/L (0-35); SODIUM 138 mmol/L (137-145); Total Protein 6.3 g/dL (6.3-8.2)
[2022-12-05 17:14] LABS: Appearance Clear (Clear); Bilirubin Negative (Negative); Blood Negative (Negative); Glucose, Urine Negative (Negative); Hyaline Casts NONE SEEN /LPF (0-2); Ketones Negative (Negative); Leukocyte Esterase Small (Negative); Nitrite Negative (Negative); Protein,Urine Dip Negative (Negative); RBC 0-2 /HPF (0-5); Specific Gravity 1.025 (1.005-1.030)
[2022-12-05 17:17] LABS: Bacteria Few /HPF (None Seen); Epithelial Cells Few /HPF (None Seen)
[2022-12-05 17:18] LABS: ADD URINE CULTURE? NO (NO)
[2022-12-05 18:20] VITALS: BP 119/66; PULSE 82
--- NOTE | 2022-12-05 18:21 | XRAY ---
CLINICAL HISTORY:Left flank and left lower abdominal pain. History of ovarian tumor removal; COMPARISON:None; TECHNIQUES:CT scan of the abdomen and pelvis was performed without IV contrast. Coronal and sagittal reconstructive images were also obtained; FINDINGS: Scan through the lower chest reveals unremarkable lung bases and heart. Abdomen. Hepatomegaly, measuring 20 cm at the largest craniocaudal span in the right lobe. No focal or diffuse abnormality is seen. The portal vein, intrahepatic biliary radicals, and the bile ducts are normal. The gallbladder is contracted and shows no definite stones. There is no evidence of wall thickening/ pericholecystic collection. The pancreas shows fatty infiltration. The spleen, and adrenal glands are unremarkable. The kidneys are normal in size and shape. No calculi or hydronephrosis. Bilateral parapelvic hypodense areas, probable cysts. The stomach and the visualized small bowel loops are unremarkable. There is no evidence of significant mesenteric or retroperitoneal lymph node enlargement. No free fluid. Pelvis. The urinary bladder is unremarkable. The ascending colon, the transverse colon, the descending colon, and the rectosigmoid colon are unremarkable. The uterus is unremarkable. Metallic liyah in the right adnexal area, concordant with history. There is a 4 x 4 x 4 cm left adnexal hypodense area, which requires further evaluation. The pelvic vasculature is unremarkable. No evidence of pelvic lymphadenopathy. No definite bony abnormalities could be depicted. S-shaped thoracolumbar scoliosis noted. IMPRESSION: 1. Hepatomegaly. 2. Fatty infiltration of the pancreas. 3. Parapelvic renal cysts. 4. Left hypodense adnexal area. Further evaluation with pelvis MR is recommended, and laboratory and clinical correlation. Electronically Signed by: Osvaldo Trinh MD. (12/05/2022 17:13:23 [employer])
[2022-12-05] MEDS ORDERED: Zofran 4 MG/2 ML VIAL IV ONE (18:41)
[2022-12-05] MEDS ORDERED: MORPHINE SULFATE 2 MG INJ IV ONE (18:41)
[2022-12-05] MEDS ORDERED: Zofran 4 MG/2 ML VIAL ONE (18:48)
[2022-12-05] MEDS ORDERED: MORPHINE SULFATE 2 MG INJ ONE (18:48)
== END 2022-12-05 19:19 | disposition home or self-care (01) ==
LOC: ED 15:19
DX: N70.93 Salpingitis and oophoritis, unspecified (principal); R10.32 Left lower quadrant pain; R10.2 Pelvic and perineal pain; Z79.85 Long-term (current) use of injectable non-insulin antidiabetic drugs; Z79.891 Long term (current) use of opiate analgesic; Z28.310 Unvaccinated for COVID-19; Z72.0 Tobacco use
CPT/HCPCS: 36000; 36415; 74176; 80053; 81001; 81025; 82150; 83690; 85025; 99284; J2270; J2405

== ENCOUNTER 2023-02-24 09:20 | Emergency (ER) | payer OTHER ==
--- NOTE | 2023-02-24 09:35 | ERPHSYRPT ---
- History of Present Illness Time Seen by Provider: 02/24/23 09:30 Historian: patient Exam Limitations: no limitations Physician History: This is an overweight 42-year-old white female patient of Dr. Santiago who is not on any anticoagulation therapy and has no bleeding or clotting disorders presents with bloody bowel movement this morning. She denies instrumentation of this area. She denies new medications. She is never had any like this before. She does have bilateral lower quadrant abdominal cramping. She denies chest pain and she denies shortness of breath. Patient is a diabetic and has bipolar disorder/schizophrenia. Patient's never had a colonoscopy. Timing/Duration: today Activities at Onset: none Quality: cramping Abdominal Pain Onset Location: RLQ, LLQ Severity of Pain-Max: mild Severity of Pain-Current: mild Modifying Factors: Improves With: nothing Associated Symptoms: denies symptoms Previous symptoms: no prior history Allergies/Adverse Reactions: No Known Drug Allergies Allergy (Verified 02/24/23 09:47) Home Medications: Lisdexamfetamine Dimesylate [Vyvanse] 30 mg PO DAILY 10/30/22 [History] Semaglutide [Ozempic] 1 mg SQ WEEKLY 10/30/22 [History] Escitalopram Oxalate [Lexapro] 1 tab PO DAILY 12/05/22 [History] Olanzapine/Samidorphan Malate [Lybalvi 10-10 mg Tablet] 1 tab PO HS 12/05/22 [History] Trazodone HCl 100 mg PO DAILY 02/24/23 [History] Hx Tetanus, Diphtheria Vaccination/Date Given: Yes Hx Influenza Vaccination/Date Given: No Hx Pneumococcal Vaccination/Date Given: No Travel Risk - International Travel Have you traveled outside of the country in past 3 weeks: No - Coronavirus Screening Are you exhibiting any of the following symptoms?: No Close contact with a COVID-19 positive Pt in past 14-21 Days: No - Vaccine Status Have you recieved a Covid-19 vaccination: No - Review of Systems Constitutional: No Symptoms Eyes: No Symptoms Ears, Nose, & Throat: No Symptoms Respiratory: No Symptoms Cardiac: No Symptoms Abdominal/Gastrointestinal: Abdominal Pain (Bilateral lower quadrant cramping), Hematochezia Genitourinary Symptoms: No Symptoms Musculoskeletal: No Symptoms Skin: No Symptoms Neurological: No Symptoms Psychological: No Symptoms Endocrine: No Symptoms Hematologic/Lymphatic: No Symptoms Immunological/Allergic: No Symptoms All Other Systems: Reviewed and Negative - Past Medical History Pertinent Past Medical History: No Neurological History: No Pertinent History ENT History: No Pertinent History Cardiac History: No Pertinent History Respiratory History: No Pertinent History Endocrine Medical History: No Pertinent History Musculoskeletal History: No Pertinent History GI Medical History: No Pertinent History History: No Pertinent History Psycho-Social History: Anxiety, Bipolar, Depression Female Reproductive Disorders: No Pertinent History, Other Other Medical History: hiatal hernia,schizophrenia - Past Surgical History Past Surgical History: Yes Neuro Surgical History: No Pertinent History Cardiac: No Pertinent History Respiratory: No Pertinent History Gastrointestinal: Appendectomy Genitourinary: No Pertinent History Musculoskeletal: No Pertinent History Female Surgical History: Other Other Surgical History: dermoid tumor age 14, ectopic ,ablation, tube and ovary removed - Social History Smoking Status: Current every day smoker How long have you smoked: 4 Exposure to second hand smoke: Yes Drug Use: none Patient Lives Alone: Yes - Nursing Vital Signs Nursing Vital Signs: Initial Vital Signs Pulse Rate 80 02/24/23 09:47 Respiratory Rate 18 02/24/23 09:47 Blood Pressure 110/77 02/24/23 09:47 O2 Sat by Pulse Oximetry 96 02/24/23 09:47 Pain Scale Pain Intensity 9 - Physical Exam General Appearance: no apparent distress, alert, anxiety, obese Eye Exam: PERRL/EOMI, eyes nml inspection Ears, Nose, Throat Exam: normal ENT inspection, moist mucous membranes Neck Exam: normal inspection, non-tender, supple, full range of motion Respiratory Exam: normal breath sounds, lungs clear, airway intact, No chest tenderness, No respiratory distress Cardiovascular Exam: regular rate/rhythm, normal heart sounds, normal peripheral pulses Gastrointestinal/Abdomen Exam: soft, normal bowel sounds, tenderness (Bilateral lower quadrant cramping) Pelvic Exam: not done Rectal Exam: not done Back Exam: normal inspection, normal range of motion, No CVA tenderness, No vertebral tenderness Extremity Exam: normal inspection, normal range of motion, pelvis stable Neurologic Exam: alert, oriented x 3, cooperative, parimutuel ticket checker II-XII nml as tested, normal mood/affect, nml cerebellar function, nml station & gait, sensation nml Skin Exam: normal color, warm, dry Lymphatic Exam: No adenopathy SpO2 Interpretation: normal O2 Delivery: Room Air Ordered Tests: Active Orders 24 hr Category Date Time Status IV Insertion STAT Care 02/24/23 09:38 Active ABDOMEN AND PELVIS W/0 CONTRAS [CT] Stat Exams 02/24/23 09:39 Completed AMYLASE Stat Lab 02/24/23 10:13 Completed CBC W DIFF Stat Lab 02/24/23 10:13 Completed CMP Stat Lab 02/24/23 10:13 Completed HCG QUALITATIVE, SERUM Stat Lab 02/24/23 10:13 Completed LIPASE Stat Lab 02/24/23 10:13 Completed Occult Blood-Fecal Screen (Diagnostic) [OB-FECAL SCREEN Lab 02/24/23 Ordered ] Stat PROTIME WITH INR Stat Lab 02/24/23 10:13 Completed UA W/RFX UR CULTURE Stat Lab 02/24/23 09:44 Completed Lab/Rad Data: Laboratory Result Diagrams 02/24/23 10:13 02/24/23 10:13 Laboratory Results 02/24/23 02/24/23 02/24/23 Range/Units 10:13 10:13 10:13 WBC (4.0-10.5) x10^3/uL RBC (4.1-5.4) x10^6/uL Hgb (12.0-16.0) g/dL Hct (35-47) % MCV (78-100) fL MCH (26-32) pg MCHC (32-36) g/dL RDW (11.5-14.0) % Plt Count (150-450) x10^3/uL MPV (7.5-11.0) fL Gran % (36.0-66.0) % Immature Gran % (Auto) (0.00-0.4) % Nucleat RBC Rel Count (0.00-0.1) % Eos # (Auto) (0-0.5) x10^3/uL Immature Gran # (Auto) (0.00-0.03) x10^3u/L Absolute Lymphs (auto) (1.0-4.6) x10^3/uL Absolute Monos (auto) (0.0-1.3) x10^3/uL Absolute Nucleated RBC (0.00-0.01) x10^3u/L Lymphocytes % (24.0-44.0) % Monocytes % (0.0-12.0) % Eosinophils % (0.00-5.0) % Basophils % (0.0-0.4) % Absolute Granulocytes (1.4-6.9) x10^3/uL Basophils # (0-0.4) x10^3/uL PT 9.4 (9.4-12.5) SECONDS INR 0.85 (0.8-3.0) Sodium 139 (137-145) mmol/L Potassium 3.6 (3.5-5.1) mmol/L Chloride 108 H (98-107) mmol/L Carbon Dioxide 24 (22-30) mmol/L Anion Gap 11.0 (5-15) MEQ/L BUN 8 (7-17) mg/dL Creatinine 0.64 (0.52-1.04) mg/dL Estimated GFR > 60.0 ML/MIN Glucose 99 (74-106) mg/dL Calcium 8.5 (8.4-10.2) mg/dL Total Bilirubin 0.30 (0.2-1.3) mg/dL AST 24 (14-36) U/L ALT 23 (0-35) U/L Alkaline Phosphatase 107 (38-126) U/L Serum Total Protein 6.2 L (6.3-8.2) g/dL Albumin 3.5 (3.5-5.0) g/dL Amylase 50 (30-110) U/L Lipase 106 (23-300) U/L Serum HCG, Qual NEGATIVE (NEGATIVE) Urine Color (Yellow) Urine Appearance (Clear) Urine pH (4.6-8.0) Ur Specific [place] (1.005-1.030) Urine Protein (Negative) Urine Glucose (UA) (Negative) mg/dL Urine Ketones (Negative) Urine Blood (Negative) Urine Nitrite (Negative) Urine Bilirubin (Negative) Urine Urobilinogen (0.2) mg/dL Ur Leukocyte Esterase (Negative) U Hyaline Cast (Auto) (0-2) /LPF Urine Microscopic RBC (0-5) /HPF Urine Microscopic WBC (0-5) /HPF Ur Epithelial Cells (None Seen) /HPF Urine Bacteria (None Seen) /HPF Urine Culture Reflexed (NO) 02/24/23 02/24/23 Range/Units 10:13 09:44 WBC 9.3 (4.0-10.5) x10^3/uL RBC 4.57 (4.1-5.4) x10^6/uL Hgb 12.5 (12.0-16.0) g/dL Hct 39.6 (35-47) % MCV 86.7 (78-100) fL MCH 27.4 (26-32) pg MCHC 31.6 L (32-36) g/dL RDW 14.0 (11.5-14.0) % Plt Count 342 (150-450) x10^3/uL MPV 8.5 (7.5-11.0) fL Gran % 67.4 H (36.0-66.0) % Immature Gran % (Auto) 0.6 H (0.00-0.4) % Nucleat RBC Rel Count 0.0 (0.00-0.1) % Eos # (Auto) 0.20 (0-0.5) x10^3/uL Immature Gran # (Auto) 0.06 H (0.00-0.03) x10^3u/L Absolute Lymphs (auto) 2.38 (1.0-4.6) x10^3/uL Absolute Monos (auto) 0.37 (0.0-1.3) x10^3/uL Absolute Nucleated RBC 0.00 (0.00-0.01) x10^3u/L Lymphocytes % 25.5 (24.0-44.0) % Monocytes % 4.0 (0.0-12.0) % Eosinophils % 2.1 (0.00-5.0) % Basophils % 0.4 (0.0-0.4) % Absolute Granulocytes 6.29 (1.4-6.9) x10^3/uL Basophils # 0.04 (0-0.4) x10^3/uL PT (9.4-12.5) SECONDS INR (0.8-3.0) Sodium (137-145) mmol/L Potassium (3.5-5.1) mmol/L Chloride (98-107) mmol/L Carbon Dioxide (22-30) mmol/L Anion Gap (5-15) MEQ/L BUN (7-17) mg/dL Creatinine (0.52-1.04) mg/dL Estimated GFR ML/MIN Glucose (74-106) mg/dL Calcium (8.4-10.2) mg/dL Total Bilirubin (0.2-1.3) mg/dL AST (14-36) U/L ALT (0-35) U/L Alkaline Phosphatase (38-126) U/L Serum Total Protein (6.3-8.2) g/dL Albumin (3.5-5.0) g/dL Amylase (30-110) U/L Lipase (23-300) U/L Serum HCG, Qual (NEGATIVE) Urine Color Yellow (Yellow) Urine Appearance Clear (Clear) Urine pH 7.5 (4.6-8.0) Ur Specific [place] 1.020 (1.005-1.030) Urine Protein Negative (Negative) Urine Glucose (UA) Negative (Negative) mg/dL Urine Ketones Negative (Negative) Urine Blood Negative (Negative) Urine Nitrite Negative (Negative) Urine Bilirubin Negative (Negative) Urine Urobilinogen 0.2 (0.2) mg/dL Ur Leukocyte Esterase Negative (Negative) U Hyaline Cast (Auto) NONE SEEN (0-2) /LPF Urine Microscopic RBC 0-2 (0-5) /HPF Urine Microscopic WBC 0-2 (0-5) /HPF Ur Epithelial Cells Few (None Seen) /HPF Urine Bacteria None Seen (None Seen) /HPF Urine Culture Reflexed NO (NO) - Progress Progress: unchanged Progress Note: 02/24/23 09:34 This patient's medical issue is 1 of moderate complexity. Level complexity in the work-up performed is based on review of the patient's past medical history, review of the patient's medication list, review the patient's drug allergy list, history of present illness and physical findings on examination. The work-up in this patient includes placement of intravenous line, CBC, CMP, PT/INR, urinalysis, CAT scan of the abdomen pelvis. 02/24/23 11:21 CAT scan of the abdomen pelvis without contrast shows no acute intra abdominal or pelvic abnormality. Counseled pt/family regarding: lab results, diagnosis, need for follow-up, rad results Medical Desision Making - Diagnostic Testing Diagnostic test were ordered, analyzed, and reviewed by me: Yes Radiological Interpretation: Reviewed by me, Teleradiologist Report - Risk of complications Low Risk: Low risk of morbidity from additional dx testing or treatment - Departure Departure Disposition: Home Clinical Impression: Rectal bleeding Condition: Stable Critical Care Time: No Referrals: JULIANA SANTIAGO MD [Primary Care Provider] - Follow up/PCP as directed Additional Instructions: Drink plenty of fluids. Take your medication as prescribed. Avoid aspirin and ibuprofen type products. Call your primary care provider on 02/25/2023 to make an appointment for further evaluation management including colonoscopy if indicated.
[2023-02-24 09:57] LABS: Appearance Clear (Clear); Bacteria None Seen /HPF (None Seen); Bilirubin Negative (Negative); Blood Negative (Negative); Epithelial Cells Few /HPF (None Seen); Glucose, Urine Negative (Negative); Hyaline Casts NONE SEEN /LPF (0-2); Ketones Negative (Negative); Leukocyte Esterase Negative (Negative); Nitrite Negative (Negative); Ph 7.5 (4.6-8.0); Protein,Urine Dip Negative (Negative); RBC 0-2 /HPF (0-5); Urobilinogen 0.2 mg/dL (0.2); WBC 0-2 /HPF (0-5)
[2023-02-24 10:05] VITALS: BP 110/77; PULSE 80; RESP 18; O2SAT 96
[2023-02-24 10:14] LABS: Absolute Neutrophil Ct (ANC) 6.29 x10^3/uL (1.4-6.9); BASOPHIL % 0.4 % (0.0-0.4); Basophil (Absolute #) 0.04 x10^3/uL (0-0.4); Eosinophil % 2.1 % (0.00-5.0); Hematocrit 39.6 % (35-47); Hemoglobin 12.5 g/dL (12.0-16.0); IMMATURE GRAN # 0.06 x10^3u/L (0.00-0.03); IMMATURE GRAN % 0.6 % (0.00-0.4); Lymphocyte (Absolute #) 2.38 x10^3/uL (1.0-4.6); Lymphocytes % 25.5 % (24.0-44.0); Mean Cell Volume 86.7 fL (78-100); Mean Corpuscular Hemoglobin 27.4 pg (26-32); Mean Corpuscular Hgb Concent. 31.6 g/dL (32-36); Mean Platelet Volume 8.5 fL (7.5-11.0); Monocyte (Absolute #) 0.37 x10^3/uL (0.0-1.3); Neutrophil % 67.4 % (36.0-66.0); Platelet Count 342 x10^3/uL (150-450); Red Blood Count 4.57 x10^6/uL (4.1-5.4); White Blood Count 9.3 x10^3/uL (4.0-10.5)
[2023-02-24 10:30] LABS: ALBUMIN 3.5 g/dL (3.5-5.0); ALKALINE PHOSPHATASE 107 U/L (38-126); AMYLASE 50 U/L (30-110); BLOOD UREA NITROGEN 8 mg/dL (7-17); CHLORIDE 108 mmol/L (98-107); Calcium 8.5 mg/dL (8.4-10.2); Carbon Dioxide 24 mmol/L (22-30); Creatinine 1 0.64 mg/dL (0.52-1.04); EST GLOMERULAR FILTRATION RATE > 60.0 ML/MIN; Glucose 99 mg/dL (74-106); LIPASE 106 U/L (23-300); Potassium 3.6 mmol/L (3.5-5.1); SGOT/AST 24 U/L (14-36); SGPT/ALT 23 U/L (0-35); SODIUM 139 mmol/L (137-145); Total Protein 6.2 g/dL (6.3-8.2)
[2023-02-24 10:33] LABS: INR 0.85 (0.8-3.0); PROTIME 9.4 SECONDS (9.4-12.5)
[2023-02-24 10:34] LABS: ADD URINE CULTURE? NO (NO)
[2023-02-24 10:35] LABS: HCG SERUM TEST NEGATIVE (NEGATIVE)
--- NOTE | 2023-02-24 11:15 | XRAY ---
CLINICAL HISTORY:BLQ ABD pain; rectal bleeding COMPARISON:Previous CT dated 12/05/2022. TECHNIQUE:Contiguous, multislice, non-enhanced CT scan of the abdomen and pelvis was performed in the axial plane with multiplanar reconstructions. FINDINGS: Mildly enlarged liver measuring about 19 cm showing homogeneous attenuation with no obvious focal mass lesion within the limitations of non-contrast study. Gallbladder shows no definite calculi inside. Pancreas and spleen appear unremarkable. No adrenal mass. Small sliding hiatal hernia. Both kidneys appear normal in size, show normal contour and attenuation. No calculus, mass or hydronephrosis in either kidney. Possible parapelvic renal cysts seen bilaterally. No ascites. No para-aortic lymphadenopathy. Imaged bowel structures appear unremarkable except few colonic diverticuli. No significant bowel dilatation. Metallic densities are seen in the right iliac, probably related to prior surgical intervention. Clinical correlation is suggested. Rectum is showing a normal appearance. Multiple pelvic phleboliths noted. Small fat-containing umbilical hernia. The urinary bladder is partially distended, however appears free from intraluminal stones and obvious mass. Normal-sized uterus. No adnexal mass. Surgical clips seen in the right adnexal region could be related to prior surgical intervention. No acute osseous abnormality or suspicious bony lesions. Scoliosis of lumbar spine with convexity towards left side. Degenerative changes seen in the spine. Visualized sections of lower chest show no focal mass or consolidation. Atelectatic changes are seen in left lower lobe. Small hiatus hernia is noted. IMPRESSION: 1. Limited organ parenchymal evaluation within the limitations of non-contrast study. 2. No acute intra-abdominal abnormality seen. 3. Possible parapelvic renal cysts, stable. 4. Left adnexal mass seen in prior scan is not visualized in the current study. 5. Rest of the findings shows no significant interval changes. Electronically Signed by: Osvaldo Trinh MD. (02/24/2023 10:14:09 [employer])
[2023-02-24 12:04] LABS: IFOB TEST RESULTS NEGATIVE (NEGATIVE)
== END 2023-02-24 11:35 | disposition home or self-care (01) ==
LOC: ED 09:20
DX: K62.5 Hemorrhage of anus and rectum (principal); R10.31 Right lower quadrant pain; R10.32 Left lower quadrant pain; E11.9 Type 2 diabetes mellitus without complications; Z79.85 Long-term (current) use of injectable non-insulin antidiabetic drugs; Z79.899 Other long term (current) drug therapy; Z28.310 Unvaccinated for COVID-19; Z72.0 Tobacco use
CPT/HCPCS: 36000; 36415; 74176; 80053; 81001; 82150; 83690; 84703; 85025; 85610; 99283; G0328; 82274

== ENCOUNTER 2023-02-27 10:03 | Emergency (ER) | payer OTHER ==
--- NOTE | 2023-02-27 10:13 | ERPHSYRPT ---
- History of Present Illness Time Seen by Provider: 02/27/23 10:13 Source: patient Exam Limitations: no limitations Physician History: This is a 42-year-old white female patient of Dr. Santiago who presents today with back pain as well as worsening bilateral lower quadrant abdominal pain. Patient was seen here in this emergency department by me on 02/24/2023 with a complaint of rectal bleeding and abdominal pain. She states that over the weekend the pain in the abdomen has worsened and now she has back pain. Her work-up on 02/24/2023, which included a CBC, CMP, amylase, lipase, urinalysis and a CAT scan of the abdomen pelvis showed no acute, emergent findings. Specifically, the CAT scan showed no acute intra-abdominal abnormality. There was a small fat-containing umbilical hernia. Patient has a history of diabetes, bipolar disorder, and schizophrenia. She has never had a colonoscopy in the past. She has an appointment to see her primary care provider, Dr. Santiago, tomorrow. Timing/Duration: day(s) (3 to 4 days), worse Method of Injury: other (no injury) Severity of Pain-Max: moderate Severity of Pain-Current: moderate Modifying Factors: Improves With: nothing Associated Symptoms: denies symptoms Previous symptoms: same symptoms as today, recently seen, recently treated Allergies/Adverse Reactions: No Known Drug Allergies Allergy (Verified 02/24/23 09:47) Home Medications: Lisdexamfetamine Dimesylate [Vyvanse] 30 mg PO DAILY 10/30/22 [History] Semaglutide [Ozempic] 1 mg SQ WEEKLY 10/30/22 [History] Escitalopram Oxalate [Lexapro] 1 tab PO DAILY 12/05/22 [History] Olanzapine/Samidorphan Malate [Lybalvi 10-10 mg Tablet] 1 tab PO HS 12/05/22 [History] Trazodone HCl 100 mg PO DAILY 02/24/23 [History] Hx Tetanus, Diphtheria Vaccination/Date Given: Yes Hx Influenza Vaccination/Date Given: No Hx Pneumococcal Vaccination/Date Given: No Travel Risk - International Travel Have you traveled outside of the country in past 3 weeks: No - Coronavirus Screening Are you exhibiting any of the following symptoms?: No Close contact with a COVID-19 positive Pt in past 14-21 Days: No - Vaccine Status Have you recieved a Covid-19 vaccination: No - Review of Systems Constitutional: No Symptoms Eyes: No Symptoms Ears, Nose, & Throat: No Symptoms Respiratory: No Symptoms Cardiac: No Symptoms Abdominal/Gastrointestinal: Abdominal Pain, Hematochezia Genitourinary Symptoms: No Symptoms Musculoskeletal: No Symptoms Skin: No Symptoms Neurological: No Symptoms Psychological: No Symptoms Endocrine: No Symptoms Hematologic/Lymphatic: No Symptoms Immunological/Allergic: No Symptoms All Other Systems: Reviewed and Negative - Past Medical History Pertinent Past Medical History: No Neurological History: No Pertinent History ENT History: No Pertinent History Cardiac History: No Pertinent History Respiratory History: No Pertinent History Endocrine Medical History: No Pertinent History Musculoskeletal History: No Pertinent History GI Medical History: No Pertinent History History: No Pertinent History Psycho-Social History: Anxiety, Bipolar, Depression Female Reproductive Disorders: No Pertinent History, Other Other Medical History: hiatal hernia,schizophrenia - Past Surgical History Past Surgical History: Yes Neuro Surgical History: No Pertinent History Cardiac: No Pertinent History Respiratory: No Pertinent History Gastrointestinal: Appendectomy Genitourinary: No Pertinent History Musculoskeletal: No Pertinent History Female Surgical History: Other Other Surgical History: dermoid tumor age 14, ectopic ,ablation, tube and ovary removed - Social History Smoking Status: Current every day smoker How long have you smoked: 4 Exposure to second hand smoke: Yes Drug Use: none Patient Lives Alone: Yes - Nursing Vital Signs Nursing Vital Signs: Initial Vital Signs Temperature 97.8 F 02/27/23 10:12 Pulse Rate 99 H 02/27/23 10:12 Respiratory Rate 20 02/27/23 10:12 Blood Pressure 113/76 02/27/23 10:12 O2 Sat by Pulse Oximetry 96 02/27/23 10:12 Pain Scale Pain Intensity [Lower Back] 8 Pain Intensity 10 - Physical Exam General Appearance: no apparent distress, alert, anxiety Eye Exam: PERRL/EOMI, eyes nml inspection Ears, Nose, Throat Exam: normal ENT inspection, moist mucous membranes Neck Exam: normal inspection, non-tender, supple, full range of motion Respiratory Exam: normal breath sounds, lungs clear, airway intact, No chest tenderness, No respiratory distress Cardiovascular Exam: regular rate/rhythm, normal heart sounds, normal peripheral pulses Gastrointestinal Exam: soft, normal bowel sounds, tenderness, guarding Pelvic Exam: not done Rectal Exam: not done Back Exam: normal inspection, normal range of motion, vertebral tenderness, No CVA tenderness Extremity Exam: normal inspection, normal range of motion, pelvis stable Neurologic Exam: alert, oriented x 3, cooperative, field health officer II-XII nml as tested, normal mood/affect, nml cerebellar function, nml station & gait, sensation nml Skin Exam: normal color, warm, dry Lymphatic Exam: No adenopathy SpO2 Interpretation: normal - Course Nursing assessment & vital signs reviewed: Yes Ordered Tests: Active Orders 24 hr Category Date Time Status ABDOMEN AND PELVIS W/0 CONTRAS [CT] Stat Exams 02/27/23 10:40 Completed AMYLASE Stat Lab 02/27/23 10:50 Completed CBC W DIFF Stat Lab 02/27/23 10:50 Completed CMP Stat Lab 02/27/23 10:50 Completed LIPASE Stat Lab 02/27/23 10:50 Completed UA W/RFX UR CULTURE Stat Lab 02/27/23 10:47 Completed Medication Summary Discontinued Medications Generic Name Dose Route Start Last Admin Trade Name Freq PRN Reason Stop Dose Admin Ketorolac Tromethamine 30 mg 02/27/23 12:12 02/27/23 12:17 Ketorolac Tromethamine 30 Mg/Ml Inj IV 02/27/23 12:13 Not Given STAT ONE Ketorolac Tromethamine Confirm 02/27/23 12:14 Ketorolac Tromethamine 30 Mg/Ml Inj Administered 02/27/23 12:15 Dose 30 mg .ROUTE .STK-MED ONE Ketorolac Tromethamine 60 mg 02/27/23 12:17 02/27/23 12:19 Ketorolac Tromethamine 30 Mg/Ml Inj IM 02/27/23 12:18 60 mg STAT ONE Administration Ketorolac Tromethamine Confirm 02/27/23 12:19 Ketorolac Tromethamine 30 Mg/Ml Inj Administered 02/27/23 12:20 Dose 30 mg .ROUTE .STK-MED ONE Lab/Rad Data: Laboratory Result Diagrams 02/27/23 10:50 02/27/23 10:50 Laboratory Results 02/27/23 02/27/23 02/27/23 Range/Units 10:50 10:50 10:47 WBC 9.8 (4.0-10.5) x10^3/uL RBC 4.85 (4.1-5.4) x10^6/uL Hgb 13.2 (12.0-16.0) g/dL Hct 41.7 (35-47) % MCV 86.0 (78-100) fL MCH 27.2 (26-32) pg MCHC 31.7 L (32-36) g/dL RDW 14.0 (11.5-14.0) % Plt Count 350 (150-450) x10^3/uL MPV 8.6 (7.5-11.0) fL Gran % 66.9 H (36.0-66.0) % Immature Gran % (Auto) 0.7 H (0.00-0.4) % Nucleat RBC Rel Count 0.0 (0.00-0.1) % Eos # (Auto) 0.25 (0-0.5) x10^3/uL Immature Gran # (Auto) 0.07 H (0.00-0.03) x10^3u/L Absolute Lymphs (auto) 2.43 (1.0-4.6) x10^3/uL Absolute Monos (auto) 0.45 (0.0-1.3) x10^3/uL Absolute Nucleated RBC 0.00 (0.00-0.01) x10^3u/L Lymphocytes % 24.7 (24.0-44.0) % Monocytes % 4.6 (0.0-12.0) % Eosinophils % 2.5 (0.00-5.0) % Basophils % 0.6 (0.0-0.4) % Absolute Granulocytes 6.56 (1.4-6.9) x10^3/uL Basophils # 0.06 (0-0.4) x10^3/uL Sodium 137 (137-145) mmol/L Potassium 3.9 (3.5-5.1) mmol/L Chloride 103 (98-107) mmol/L Carbon Dioxide 25 (22-30) mmol/L Anion Gap 12.0 (5-15) MEQ/L BUN 15 (7-17) mg/dL Creatinine 0.75 (0.52-1.04) mg/dL Estimated GFR > 60.0 ML/MIN Glucose 97 (74-106) mg/dL Calcium 8.7 (8.4-10.2) mg/dL Total Bilirubin 0.30 (0.2-1.3) mg/dL AST 19 (14-36) U/L ALT 24 (0-35) U/L Alkaline Phosphatase 110 (38-126) U/L Serum Total Protein 6.6 (6.3-8.2) g/dL Albumin 3.9 (3.5-5.0) g/dL Amylase 59 (30-110) U/L Lipase 111 (23-300) U/L Urine Color Yellow (Yellow) Urine Appearance Cloudy A (Clear) Urine pH 5.5 (4.6-8.0) Ur Specific [place] 1.015 (1.005-1.030) Urine Protein Negative (Negative) Urine Glucose (UA) Negative (Negative) mg/dL Urine Ketones Negative (Negative) Urine Blood Negative (Negative) Urine Nitrite Negative (Negative) Urine Bilirubin Negative (Negative) Urine Urobilinogen 0.2 (0.2) mg/dL Ur Leukocyte Esterase Negative (Negative) U Hyaline Cast (Auto) NONE SEEN (0-2) /LPF Urine Microscopic RBC 0-2 (0-5) /HPF Urine Microscopic WBC 0-2 (0-5) /HPF Ur Epithelial Cells Moderate A (None Seen) /HPF Urine Bacteria Few A (None Seen) /HPF Urine Culture Reflexed NO (NO) - Progress Progress: improved, pain not gone completely, re-examined Progress Note: 02/27/23 12:20 This patient medical issues 1 of moderate complexity. Level complexity in the work-up performed is based on review of the patient's past medical history, review of the patient's medication list, review of patient drug allergy list, history of present illness and physical findings on examination. The work-up in this patient includes the repeat of the work-up that was performed on 02/24/2023 since the patient is complaining of worsening abdominal pain and now includes bilateral flank pain. She is to undergo urinalysis, CBC, CMP, amylase, lipase, urinalysis and CT scan of the abdomen and pelvis. The lab results have returned and there is no evidence of any acute, emergent abnormality. In fact, the lab work results have not changed significantly in 3 days. Patient drove herself into the emergency department. She was told by me that I was fine with her receiving narcotic pain medicine. However, she drove herself and she needed to obtain a ride to receive any type of narcotic whether injectable or oral narcotic medication. At 1 point during the stay she stated that if she did not receive narcotics she was leaving. The nurse reiterated what we I had told her at the outset of the examination. She stated she could not get a ride home but she wanted me to send a prescription of [place] 5/325 to her pharmacy. Patient was told that this was not appropriate. She might not have any acute, emergent problem and we needed to wait for the CAT scan results before we make that decision. Patient then stated she is refusing the CAT scan until she receives pain medicine. We offered to her, on a few occasions, Tylenol and/or ibuprofen or injectable Toradol. She finally agreed to the Toradol injection. We are awaiting the results of the CT scan of the abdomen pelvis. 02/27/23 12:[address] scan of the abdomen pelvis without contrast was interpreted by the radiologist and I reviewed the impression. There is no significant change in the results of the study when compared to that study that was done 3 days ago. Counseled pt/family regarding: lab results, diagnosis, need for follow-up, rad results Medical Desision Making - Diagnostic Testing Diagnostic test were ordered, analyzed, and reviewed by me: Yes Radiological Interpretation: Reviewed by me, Teleradiologist Report - Risk of complications Minimal Risk: Minimal risk of morbidity - Departure Departure Disposition: Home Clinical Impression: Abdominal pain, Rectal bleeding Condition: Stable Critical Care Time: No Referrals: JULIANA SNATIAGO MD [Primary Care Provider] - Follow up/PCP as directed Additional Instructions: Keep your appointment with your primary care provider tomorrow, 02/28/2023. Your outpatient providers will be in control of pain issues. Discussed these issues with them.
[2023-02-27 10:17] VITALS: TEMP 97.8
[2023-02-27 11:00] LABS: Absolute Neutrophil Ct (ANC) 6.56 x10^3/uL (1.4-6.9); BASOPHIL % 0.6 % (0.0-0.4); Basophil (Absolute #) 0.06 x10^3/uL (0-0.4); Eosinophil % 2.5 % (0.00-5.0); Eosinophil (Absolute #) 0.25 x10^3/uL (0-0.5); Hematocrit 41.7 % (35-47); Hemoglobin 13.2 g/dL (12.0-16.0); IMMATURE GRAN # 0.07 x10^3u/L (0.00-0.03); IMMATURE GRAN % 0.7 % (0.00-0.4); Lymphocyte (Absolute #) 2.43 x10^3/uL (1.0-4.6); Lymphocytes % 24.7 % (24.0-44.0); Mean Corpuscular Hemoglobin 27.2 pg (26-32); Mean Corpuscular Hgb Concent. 31.7 g/dL (32-36); Mean Platelet Volume 8.6 fL (7.5-11.0); Monocyte (Absolute #) 0.45 x10^3/uL (0.0-1.3); Monocytes % 4.6 % (0.0-12.0); Neutrophil % 66.9 % (36.0-66.0); Platelet Count 350 x10^3/uL (150-450); Red Blood Count 4.85 x10^6/uL (4.1-5.4); White Blood Count 9.8 x10^3/uL (4.0-10.5)
[2023-02-27 11:07] LABS: Appearance Cloudy (Clear); Bacteria Few /HPF (None Seen); Bilirubin Negative (Negative); Blood Negative (Negative); Epithelial Cells Moderate /HPF (None Seen); Glucose, Urine Negative (Negative); Hyaline Casts NONE SEEN /LPF (0-2); Ketones Negative (Negative); Leukocyte Esterase Negative (Negative); Nitrite Negative (Negative); Ph 5.5 (4.6-8.0); Protein,Urine Dip Negative (Negative); RBC 0-2 /HPF (0-5); Specific Gravity 1.015 (1.005-1.030); Urobilinogen 0.2 mg/dL (0.2); WBC 0-2 /HPF (0-5)
[2023-02-27 11:08] LABS: ADD URINE CULTURE? NO (NO)
[2023-02-27 11:15] LABS: ALBUMIN 3.9 g/dL (3.5-5.0); ALKALINE PHOSPHATASE 110 U/L (38-126); AMYLASE 59 U/L (30-110); BLOOD UREA NITROGEN 15 mg/dL (7-17); CHLORIDE 103 mmol/L (98-107); Calcium 8.7 mg/dL (8.4-10.2); Carbon Dioxide 25 mmol/L (22-30); Creatinine 1 0.75 mg/dL (0.52-1.04); EST GLOMERULAR FILTRATION RATE > 60.0 ML/MIN; Glucose 97 mg/dL (74-106); LIPASE 111 U/L (23-300); Potassium 3.9 mmol/L (3.5-5.1); SGOT/AST 19 U/L (14-36); SGPT/ALT 24 U/L (0-35); SODIUM 137 mmol/L (137-145); Total Protein 6.6 g/dL (6.3-8.2)
[2023-02-27] MEDS ORDERED: TORAdol 30 mg Injection IV ONE (12:12)
[2023-02-27] MEDS ORDERED: TORAdol 30 mg Injection ONE ×2 (12:14→12:19)
[2023-02-27] MEDS ORDERED: TORAdol 30 mg Injection IM ONE (12:17)
[2023-02-27 12:40] VITALS: BP 121/77; PULSE 86; RESP 16; O2SAT 98
--- NOTE | 2023-02-27 12:47 | XRAY ---
Indication: Abdomen and back pain. Multiple contiguous axial images obtained through the abdomen and pelvis without contrast. Comparison: February 24, 2023 Lung bases remain clear. Heart not enlarged. Stable small hiatal hernia. Noncontrasted stomach and bowel loops are nonobstructed. Again right lower quadrant suture material/surgical clip presumed appendectomy. No free fluid/air. Remaining liver, gallbladder, pancreas, spleen, adrenal glands, kidneys, ureters, bladder, and uterus are unremarkable for noncontrast exam. Again minimal aortic calcification without AAA. Osseous structures again intact with mild levorotoscoliosis centered at L3. Impression: No change compared ER CT 3 days ago. Again small hiatal hernia, minimal aortic calcifications, and levorotoscoliosis. No new/acute findings on this noncontrast exam.
[2023-02-27] MEDS ORDERED: NORCO 5/325 MG PO ONE (12:51)
[2023-02-27] MEDS ORDERED: NORCO 5/325 MG ONE (13:03)
== END 2023-02-27 13:09 | disposition home or self-care (01) ==
LOC: ED 10:03
DX: R10.31 Right lower quadrant pain (principal); R10.32 Left lower quadrant pain; K62.5 Hemorrhage of anus and rectum; M54.9 Dorsalgia, unspecified; E11.9 Type 2 diabetes mellitus without complications; Z79.85 Long-term (current) use of injectable non-insulin antidiabetic drugs; Z79.899 Other long term (current) drug therapy; Z28.310 Unvaccinated for COVID-19; Z72.0 Tobacco use
CPT/HCPCS: 36415; 74176; 80053; 81001; 82150; 83690; 85025; 96372; 99283; J1885; A9270-GY

== ENCOUNTER 2023-03-06 14:34 | Emergency (ER) | payer OTHER ==
--- NOTE | 2023-03-06 14:38 | ERPHSYRPT ---
- History of Present Illness Time Seen by Provider: 03/06/23 14:38 Historian: patient, family ('s mother provided), old records ( additional independent history) Exam Limitations: no limitations Physician History: This is a 42-year-old white female patient that is morbidly obese. Patient's primary care provider is Dr. Santiago. I am seeing this patient twice in the last approximately 10 days for the same issue. Today, she states she has abdominal pain with vomiting of blood, urinating blood, vaginal bleeding and rectal bleeding. She has had full work-ups to prior dates (02/24/2023, 02/27/2023). Patient has significant psychiatric issues in terms of bipolar disorder and schizophrenia. Patient's mother brought her to the emergency department. Patient is diabetic. Patient has already been scheduled for an upper endoscopy. Date and time is not known to the patient's mother. Patient has had 2 CAT scans of the abdomen pelvis without contrast in the last 10 days and both showed nonacute findings. Her hemoglobins have been stable and in normal or near juliann l range. Patient may be experiencing some psychiatric issues and not actual medical issues. However, we will repeat the CBC, CMP, PT/INR and a urinalysis. I will not repeat the CAT scan of the abdomen pelvis. I discussed this issue with the patient's mother. She agrees that this test is not necessary today. Patient's vital signs are stable and patient is afebrile on her initial evaluation in the emergency department Timing/Duration: today Abdominal Pain Onset Location: generalized abdomen Severity of Pain-Max: mild Severity of Pain-Current: mild Associated Symptoms: other (Patient seems a little lethargic today) Previous symptoms: same symptoms as today, recently seen, recently treated Allergies/Adverse Reactions: No Known Drug Allergies Allergy (Verified 03/05/23 13:58) Home Medications: Lisdexamfetamine Dimesylate [Vyvanse] 30 mg PO DAILY 10/30/22 [History] Semaglutide [Ozempic] 1 mg SQ WEEKLY 10/30/22 [History] Escitalopram Oxalate [Lexapro] 1 tab PO DAILY 12/05/22 [History] Olanzapine/Samidorphan Malate [Lybalvi 10-10 mg Tablet] 1 tab PO HS 12/05/22 [History] Trazodone HCl 100 mg PO DAILY 02/24/23 [History] Naproxen [Naprosyn] 500 mg PO BID 03/05/23 [History] Ondansetron [Ondansetron Odt ] 4 mg PO Q6H PRN 03/05/23 [History] Hx Tetanus, Diphtheria Vaccination/Date Given: Yes Hx Influenza Vaccination/Date Given: No Hx Pneumococcal Vaccination/Date Given: No Travel Risk - International Travel Have you traveled outside of the country in past 3 weeks: No - Coronavirus Screening Are you exhibiting any of the following symptoms?: No Close contact with a COVID-19 positive Pt in past 14-21 Days: No - Vaccine Status Have you recieved a Covid-19 vaccination: No - Review of Systems Constitutional: No Symptoms Eyes: No Symptoms Ears, Nose, & Throat: No Symptoms Respiratory: No Symptoms Cardiac: No Symptoms Abdominal/Gastrointestinal: Abdominal Pain, Hematemesis (Per her report but not witnessed or substantiated), Hematochezia (Per her report but not witnessed or substantiated) Genitourinary Symptoms: No Symptoms Musculoskeletal: No Symptoms Skin: No Symptoms Neurological: No Symptoms Psychological: No Symptoms Endocrine: No Symptoms Hematologic/Lymphatic: No Symptoms Immunological/Allergic: No Symptoms All Other Systems: Reviewed and Negative - Past Medical History Pertinent Past Medical History: No Neurological History: No Pertinent History ENT History: No Pertinent History Cardiac History: No Pertinent History Respiratory History: No Pertinent History Endocrine Medical History: No Pertinent History Musculoskeletal History: No Pertinent History GI Medical History: No Pertinent History History: No Pertinent History Psycho-Social History: Anxiety, Bipolar, Depression Female Reproductive Disorders: No Pertinent History, Other Other Medical History: hiatal hernia,schizophrenia - Past Surgical History Past Surgical History: Yes Neuro Surgical History: No Pertinent History Cardiac: No Pertinent History Respiratory: No Pertinent History Gastrointestinal: Appendectomy Genitourinary: No Pertinent History Musculoskeletal: No Pertinent History Female Surgical History: Other Other Surgical History: dermoid tumor age 14, ectopic ,ablation, tube and ovary removed - Social History Smoking Status: Current every day smoker How long have you smoked: 4 Exposure to second hand smoke: Yes Drug Use: none Patient Lives Alone: Yes - Nursing Vital Signs Nursing Vital Signs: Initial Vital Signs Pulse Rate 96 H 03/06/23 14:41 Respiratory Rate 16 03/06/23 14:41 Blood Pressure 123/86 03/06/23 14:41 O2 Sat by Pulse Oximetry 93 L 03/06/23 14:41 Pain Scale Pain Intensity 10 - Physical Exam General Appearance: no apparent distress, lethargy (Mildly but arousable and answers questions), obese Eye Exam: PERRL/EOMI, eyes nml inspection Ears, Nose, Throat Exam: normal ENT inspection, moist mucous membranes Neck Exam: normal inspection, non-tender, supple, full range of motion Respiratory Exam: normal breath sounds, lungs clear, airway intact, No chest tenderness, No respiratory distress Cardiovascular Exam: regular rate/rhythm, normal heart sounds, normal peripheral pulses Gastrointestinal/Abdomen Exam: soft, normal bowel sounds, tenderness, No guarding (Mild diffuse), No rebound Pelvic Exam: not done Rectal Exam: not done Back Exam: normal inspection, normal range of motion, No CVA tenderness, No vertebral tenderness Extremity Exam: normal inspection, normal range of motion, pelvis stable Neurologic Exam: oriented x 3, cooperative, heel shaper II-XII nml as tested, nml cerebellar function, nml station & gait, sensation nml Skin Exam: normal color, warm, dry Lymphatic Exam: No adenopathy SpO2 Interpretation: normal O2 Delivery: Room Air - Course Nursing assessment & vital signs reviewed: Yes Ordered Tests: Active Orders 24 hr Category Date Time Status IV Insertion STAT Care 03/06/23 15:31 Active CBC W DIFF Stat Lab 03/06/23 14:53 Completed CMP Stat Lab 03/06/23 14:53 Completed PROTIME WITH INR Stat Lab 03/06/23 14:53 Completed UA W/RFX UR CULTURE Stat Lab 03/06/23 15:31 Received Lab/Rad Data: Laboratory Result Diagrams 03/06/23 14:53 03/06/23 14:53 Laboratory Results 03/06/23 03/06/23 03/06/23 Range/Units 14:53 14:53 14:53 WBC 10.1 (4.0-10.5) x10^3/uL RBC 4.68 (4.1-5.4) x10^6/uL Hgb 13.0 (12.0-16.0) g/dL Hct 40.8 (35-47) % MCV 87.2 (78-100) fL MCH 27.8 (26-32) pg MCHC 31.9 L (32-36) g/dL RDW 14.2 H (11.5-14.0) % Plt Count 312 (150-450) x10^3/uL MPV 9.0 (7.5-11.0) fL Gran % 66.2 H (36.0-66.0) % Immature Gran % (Auto) 0.5 H (0.00-0.4) % Nucleat RBC Rel Count 0.0 (0.00-0.1) % Eos # (Auto) 0.26 (0-0.5) x10^3/uL Immature Gran # (Auto) 0.05 H (0.00-0.03) x10^3u/L Absolute Lymphs (auto) 2.66 (1.0-4.6) x10^3/uL Absolute Monos (auto) 0.41 (0.0-1.3) x10^3/uL Absolute Nucleated RBC 0.00 (0.00-0.01) x10^3u/L Lymphocytes % 26.2 (24.0-44.0) % Monocytes % 4.0 (0.0-12.0) % Eosinophils % 2.6 (0.00-5.0) % Basophils % 0.5 (0.0-0.4) % Absolute Granulocytes 6.71 (1.4-6.9) x10^3/uL Basophils # 0.05 (0-0.4) x10^3/uL PT 9.6 (9.4-12.5) SECONDS INR 0.87 (0.8-3.0) Sodium 138 (137-145) mmol/L Potassium 3.8 (3.5-5.1) mmol/L Chloride 106 (98-107) mmol/L Carbon Dioxide 23 (22-30) mmol/L Anion Gap 13.0 (5-15) MEQ/L BUN 14 (7-17) mg/dL Creatinine 0.69 (0.52-1.04) mg/dL Estimated GFR > 60.0 ML/MIN Glucose 105 (74-106) mg/dL Calcium 8.5 (8.4-10.2) mg/dL Total Bilirubin 0.20 (0.2-1.3) mg/dL AST 24 (14-36) U/L ALT 25 (0-35) U/L Alkaline Phosphatase 95 (38-126) U/L Serum Total Protein 6.4 (6.3-8.2) g/dL Albumin 3.6 (3.5-5.0) g/dL - Progress Progress: improved, pain not gone completely, re-examined Progress Note: 03/06/23 15:01 This patient's medical issue is 1 of moderate complexity. Level of complexity in the work-up performed is based on review of the patient's past medical history, review of the patient's medication list, review the patient's drug allergy list, history of present illness and physical findings on examination. The work-up in this patient will not include a repeat CAT scan of the abdomen pelvis without contrast as to have been performed within the last 10 days. They are nonacute. We will repeat a CBC, CMP, PT/INR and urinalysis. Patient appears to me to have more of a psychiatric issue rather than a medical 1. However I think it is important to work up this patient from laboratory standpoint. On exam she does not have an acute, emergent surgical abdomen. 03/06/23 15:40 I interpreted the work-up results. This patient does not have an acute, emergent medical issue. She may have a psychiatric issue. She is not suicidal or homicidal. We will discharge the patient home to and with the patient's mother Counseled pt/family regarding: lab results, diagnosis, need for follow-up Medical Desision Making - Independent Historian Additional History obtained from: Mother - Diagnostic Testing Diagnostic test were ordered, analyzed, and reviewed by me: Yes - Risk of complications Low Risk: Low risk of morbidity from additional dx testing or treatment - Departure Departure Disposition: Home Clinical Impression: Vomiting, Abdominal pain, Schizophrenia, Bipolar disorder Condition: Stable Critical Care Time: No Referrals: JULIANA SANTIAGO MD [Primary Care Provider] - Follow up/PCP as directed Additional Instructions: Take all medications as prescribed. Keep your appointment for your upper endoscopy. Follow-up with your mental health worker who prescribes your psychiatric medications for further evaluation and management.
[2023-03-06 15:11] LABS: Absolute Neutrophil Ct (ANC) 6.71 x10^3/uL (1.4-6.9); BASOPHIL % 0.5 % (0.0-0.4); Basophil (Absolute #) 0.05 x10^3/uL (0-0.4); Eosinophil % 2.6 % (0.00-5.0); Eosinophil (Absolute #) 0.26 x10^3/uL (0-0.5); Hematocrit 40.8 % (35-47); IMMATURE GRAN # 0.05 x10^3u/L (0.00-0.03); IMMATURE GRAN % 0.5 % (0.00-0.4); Lymphocyte (Absolute #) 2.66 x10^3/uL (1.0-4.6); Lymphocytes % 26.2 % (24.0-44.0); Mean Cell Volume 87.2 fL (78-100); Mean Corpuscular Hemoglobin 27.8 pg (26-32); Mean Corpuscular Hgb Concent. 31.9 g/dL (32-36); Monocyte (Absolute #) 0.41 x10^3/uL (0.0-1.3); Neutrophil % 66.2 % (36.0-66.0); Platelet Count 312 x10^3/uL (150-450); Red Blood Count 4.68 x10^6/uL (4.1-5.4); Red Cell Distribution Width 14.2 % (11.5-14.0); White Blood Count 10.1 x10^3/uL (4.0-10.5)
[2023-03-06 15:17] LABS: ALBUMIN 3.6 g/dL (3.5-5.0); ALKALINE PHOSPHATASE 95 U/L (38-126); BLOOD UREA NITROGEN 14 mg/dL (7-17); CHLORIDE 106 mmol/L (98-107); Calcium 8.5 mg/dL (8.4-10.2); Carbon Dioxide 23 mmol/L (22-30); Creatinine 1 0.69 mg/dL (0.52-1.04); EST GLOMERULAR FILTRATION RATE > 60.0 ML/MIN; Glucose 105 mg/dL (74-106); INR 0.87 (0.8-3.0); PROTIME 9.6 SECONDS (9.4-12.5); Potassium 3.8 mmol/L (3.5-5.1); SGOT/AST 24 U/L (14-36); SGPT/ALT 25 U/L (0-35); SODIUM 138 mmol/L (137-145); Total Protein 6.4 g/dL (6.3-8.2)
[2023-03-06 15:44] LABS: Appearance Clear (Clear); Bacteria None Seen /HPF (None Seen); Bilirubin Negative (Negative); Blood Negative (Negative); Epithelial Cells Rare /HPF (None Seen); Glucose, Urine Negative (Negative); Hyaline Casts NONE SEEN /LPF (0-2); Ketones Negative (Negative); Leukocyte Esterase Negative (Negative); Nitrite Negative (Negative); Protein,Urine Dip Negative (Negative); RBC 0-2 /HPF (0-5); Specific Gravity 1.015 (1.005-1.030); WBC 0-2 /HPF (0-5)
[2023-03-06 15:49] LABS: ADD URINE CULTURE? NO (NO)
[2023-03-06 15:57] VITALS: RESP 15
[2023-03-06 16:05] VITALS: BP 115/78; PULSE 78; O2SAT 93
== END 2023-03-06 16:22 | disposition home or self-care (01) ==
LOC: ED 14:34
DX: R11.2 Nausea with vomiting, unspecified (principal); R10.9 Unspecified abdominal pain; F20.9 Schizophrenia, unspecified; F31.9 Bipolar disorder, unspecified; E11.9 Type 2 diabetes mellitus without complications; Z79.85 Long-term (current) use of injectable non-insulin antidiabetic drugs; Z79.899 Other long term (current) drug therapy; Z28.310 Unvaccinated for COVID-19; Z72.0 Tobacco use
CPT/HCPCS: 36000; 36415; 80053; 81001; 85025; 85610; 99283

== ENCOUNTER 2023-03-15 06:20 | Day surgery (SDC) | payer OTHER ==
[2023-03-15] MEDS ORDERED: Lactated Ringers 1,000 ML IV SCH (07:30)
[2023-03-15 07:32] VITALS: RESP 16
[2023-03-15] MEDS ORDERED: Lactated Ringers 1,000 ML IV ONE (07:37)
[2023-03-15 07:39] LABS: HCG URINE TEST NEGATIVE (NEGATIVE)
[2023-03-15] MEDS ORDERED: DIPRIVAN 200 MG/20 ML IV ONE (08:09)
[2023-03-15] MEDS ORDERED: Versed 2 MG/2 ML Injection ONE (08:09)
[2023-03-15] MEDS ORDERED: Zofran 4 MG/2 ML VIAL ONE (08:33)
--- NOTE | 2023-03-15 09:15 | OP ---
SURGERY DATE/TIME: 03/15/2023 0821 PREOPERATIVE DIAGNOSIS: Abdominal pain. POSTOPERATIVE DIAGNOSIS: Gastritis and gastroparesis. PROCEDURE: Esophagogastroduodenoscopy with cold forceps biopsy. SURGEON: Dr. Dominguez. ANESTHESIA: Medications were given by the anesthesia department. BRIEF HISTORY: The patient is a 42-year-old white female presenting now for endoscopic evaluation. The patient reports that he has been having abdominal pain pretty much in her entire abdomen. She also complains of some bleeding in some emesis, stool and vaginal. The patient was noted to be on Ozempic and she has also been taking naproxen. The patient was felt to need to have endoscopic evaluation. She was appraised of the risks of the procedure including the risk of perforation, phlebitis, untoward reaction to medication, bleeding and missed lesions. The patient verbalized her understanding and desired to have the procedure performed. DESCRIPTION OF PROCEDURE: The patient was given the medications by the anesthesia department. She had continuous pulse oximetry, ECG monitoring and intermittent blood pressure monitoring during the examination. She was placed in the left lateral decubitus position. A bite block was placed and the flexible Olympus gastroscope was used to intubate the oropharynx. A view of the larynx was obtained and was normal. The scope was easily introduced in the esophagus which appeared to be normal to the gastroesophageal junction. The stomach was then entered where there was noted to be food stuff still present mostly liquefied but occupying approximately a third of her stomach. The scope was passed along the greater curvature of the stomach to the antrum. There was generalized area of erythema noted throughout the stomach. The pylorus was encountered and intubated. The duodenum inspected and found to be essentially normal. The scope is withdrawn towards the stomach. Again, we were unable to see the lesser curvature, fundus regions of the stomach due to the presence of gastric food stuffs. The scope was redirected towards the gastric antrum and biopsies were obtained to rule out the presence of Helicobacter pylori-type organisms. The scope was then removed from the patient who tolerated the procedure well and was sent back to outpatient recovery in good condition.
[2023-03-15 09:54] VITALS: BP 114/64; PULSE 66; TEMP 97.1; O2SAT 93
== END 2023-03-15 10:03 | disposition home or self-care (01) ==
LOC: SDC 06:20
PROVIDERS: ATTEND Family Medicine
DX: K29.70 Gastritis, unspecified, without bleeding (principal); R10.9 Unspecified abdominal pain; K31.84 Gastroparesis
CPT/HCPCS: 81025; J2250; J2405; J2704

== ENCOUNTER 2024-05-22 23:42 | Emergency (ER) | payer OTHER ==
--- NOTE | 2024-05-22 23:48 | ERPHSYRPT ---
- History of Present Illness Time Seen by Provider: 05/22/24 23:47 Historian: patient Exam Limitations: no limitations Physician History: This is a morbidly obese, 43-year-old white female patient of Dr. Dominguez who presents to the emergency department by private vehicle accompanied by friend. The patient states that she feels as though "something is coming out of my vagina. I think it is the intestines". She states she has had this issue for several months. Her primary care provider usually does her gynecologic exams and he is not evaluated her in greater than 6 months. Patient has rectal and vaginal pain that is worse when sitting upright. She describes this as a ache. She has no abdominal pain. She denies nausea vomiting or diarrhea symptoms. Patient is a daily smoker of tobacco cigarettes. Patient has a history of diabetes, anxiety, depression, bipolar disorder and schizophrenia. In the timeframe of October 30, 2022 and February 27, 2023, patient underwent for CT scans of the abdomen pelvis all without contrast. I reviewed the impression and all of these studies. They all state that the uterus is of normal size or unremarkable. Timing/Duration: today Activities at Onset: none Quality: aching, pressure Abdominal Pain Onset Location: other (Abdominal pain. Patient has mild to moderate pain in the rectal and vaginal region but not in the abdomen) Severity of Pain-Max: mild Severity of Pain-Current: mild Associated Symptoms: No loss of appetite, No nausea, No vomiting Previous symptoms: same symptoms as today, no recent treatment Allergies/Adverse Reactions: bee venom protein (honey bee) Allergy (Intermediate, Verified 05/22/24 23:54) Swelling morphine Allergy (Intermediate, Verified 05/22/24 23:54) Hives Home Medications: Semaglutide [Ozempic] 1 mg SQ WEEKLY 10/30/22 [History] Escitalopram Oxalate [Lexapro] 1 tab PO DAILY 12/05/22 [History] Trazodone HCl 100 mg PO DAILY 02/24/23 [History] Naproxen [Naprosyn] 500 mg PO BID 03/05/23 [History] Ondansetron [Ondansetron Odt ] 4 mg PO Q6H PRN 03/05/23 [History] Hx Tetanus, Diphtheria Vaccination/Date Given: Yes Hx Influenza Vaccination/Date Given: No Hx Pneumococcal Vaccination/Date Given: No Travel Risk - International Travel Have you traveled outside of the country in past 3 weeks: No - Emerging Infectious Disease Are you exhibiting symptoms associated with any current EIDs: No - Review of Systems Constitutional: No Symptoms Eyes: No Symptoms Ears, Nose, & Throat: No Symptoms Respiratory: No Symptoms Cardiac: No Symptoms Abdominal/Gastrointestinal: No Symptoms, Other, No Abdominal Pain Genitourinary Symptoms: Other (Questionable vaginal/uterine prolapse) Skin: No Symptoms Neurological: No Symptoms Psychological: No Symptoms Endocrine: No Symptoms Hematologic/Lymphatic: No Symptoms Immunological/Allergic: No Symptoms All Other Systems: Reviewed and Negative - Past Medical History Pertinent Past Medical History: No Neurological History: No Pertinent History ENT History: No Pertinent History Cardiac History: No Pertinent History Respiratory History: No Pertinent History Endocrine Medical History: Hypothyroidism Musculoskeletal History: No Pertinent History GI Medical History: No Pertinent History History: No Pertinent History Psycho-Social History: Anxiety, Bipolar, Depression Female Reproductive Disorders: No Pertinent History, Other Other Medical History: SEVERE MAJOR DEPRESSION, ANXIETY, OVARIAN CYST, APPENDECTOMY, ENDOMETRIAL ABLATION, ECTOPIC , CHRONIC ABDOMINAL PAIN, EXCISION OF LIPOMA, REPAIR HERNIA OF ANTERIOR WALL. schizophrenia - Past Surgical History Past Surgical History: Yes Neuro Surgical History: No Pertinent History Cardiac: No Pertinent History Respiratory: No Pertinent History Gastrointestinal: Appendectomy Genitourinary: No Pertinent History Musculoskeletal: No Pertinent History Female Surgical History: Other Other Surgical History: dermoid tumor age 14, ectopic ,ablation, tube and ovary removed - Social History Smoking Status: Current every day smoker How long have you smoked: 4 Exposure to second hand smoke: Yes Drug Use: marijuana Patient Lives Alone: Yes - Nursing Vital Signs Nursing Vital Signs: Initial Vital Signs Blood Pressure 139/92 05/22/24 23:54 O2 Sat by Pulse Oximetry 96 05/22/24 23:54 Pain Scale Pain Intensity 10 - Physical Exam General Appearance: no apparent distress, alert, anxiety, obese Eye Exam: PERRL/EOMI, eyes nml inspection Ears, Nose, Throat Exam: normal ENT inspection, moist mucous membranes Neck Exam: normal inspection, non-tender, supple, full range of motion Respiratory Exam: normal breath sounds, lungs clear, airway intact, No chest tenderness, No respiratory distress Cardiovascular Exam: regular rate/rhythm, normal heart sounds, normal peripheral pulses Gastrointestinal/Abdomen Exam: soft, normal bowel sounds, No tenderness Pelvic Exam: other (Questionable vaginal/uterine prolapse. This prolapse is reducible. No intestinal prolapse. ) Rectal Exam: not done Extremity Exam: normal inspection, normal range of motion, pelvis stable Neurologic Exam: alert, oriented x 3, cooperative, instant printer operator II-XII nml as tested, nml cerebellar function, nml station & gait, sensation nml Skin Exam: normal color, warm, dry Lymphatic Exam: No adenopathy SpO2 Interpretation: normal O2 Delivery: Room Air - Course Nursing assessment & vital signs reviewed: Yes Ordered Tests: Active Orders 24 hr Category Date Time Status ABDOMEN AND PELVIS W/0 CONTRAS [CT] Stat Exams 05/23/24 00:37 Completed HCG QUALITATIVE, URINE Stat Lab 05/23/24 00:40 Completed Lab/Rad Data: Laboratory Results 05/23/24 Range/Units 00:40 Urine HCG, Qual NEGATIVE (NEGATIVE) - Progress Progress: unchanged Progress Note: 05/23/24 00:53 My medical decision making and the assignment of low complexity to this patient's medical issue today is based on review of the patient's past medical history, review of the patient's medication list, reviewed patient drug allergy list, history present illness and physical findings on examination. The workup in this case includes CT scan of the abdomen pelvis without contrast. Differential diagnosis includes but is not limited to uterine prolapse, vaginal or rectal prolapse 05/23/24 02:[address] scan of the abdomen pelvis without contrast was interpreted by the radiologist. I reviewed the impression. The pelvic viscera are unremarkable. There is no new or acute intra-abdominal or intrapelvic abnormalities. Counseled pt/family regarding: diagnosis, need for follow-up, rad results Medical Desision Making - Independent Historian Additional History obtained from: Family - Diagnostic Testing Diagnostic test were ordered, analyzed, and reviewed by me: Yes Radiological Interpretation: Reviewed by me, Teleradiologist Report - Risk of complications Low Risk: Low risk of morbidity from additional dx testing or treatment - Departure Departure Disposition: Home Clinical Impression: Vaginal pain Condition: Stable Critical Care Time: No Referrals: TONJA MCNEIL DO [Primary Care Provider] - Follow up/PCP as directed Additional Instructions: Continue all your medications as prescribed. Use Tylenol and ibuprofen for pain control. Call appeals officer on 05/25/2024, to make arrangements for follow-up appointment for further evaluation management.
[2024-05-23 00:18] VITALS: RESP 18; TEMP 98.2
[2024-05-23 00:50] LABS: HCG URINE TEST NEGATIVE (NEGATIVE)
--- NOTE | 2024-05-23 02:02 | XRAY ---
CLINICAL HISTORY: Vaginal/uterine prolapse COMPARISON: 2022 08:57:08 [employer] TECHNIQUE: Contiguous axial images were obtained from the level of the diaphragm to the pubic symphysis without intravenous or oral contrast. Coronal and sagittal reconstructions were likewise performed and indicated to increase the sensitivity for detecting clinically relevant pathology. CT scan was performed according to ALARA (as low as reasonable achievable). FINDINGS: The visualized lung bases are clear. Sliding hiatus hernia. Evaluation of the abdominal and pelvic visceral organs is limited without intravenous contrast. The unenhanced liver, spleen, pancreas, and adrenal glands are grossly unremarkable. The gallbladder is present. The kidneys are normal in size and attenuation without obvious calcification. Stable peripelvic cysts. There is no hydronephrosis or perinephric stranding. The ureters are normal in caliber. No adenopathy or fluid collections are seen. No evidence of focal or diffuse bowel wall thickening or evidence of bowel obstruction is seen. The appendix is visualized in the right lower quadrant and appears within normal limits. The aorta is normal in caliber. The urinary bladder is normal in contour. Pelvic viscera are grossly unremarkable. No aggressive appearing osseous lesions are identified. IMPRESSION: 1. Sliding hiatus hernia.-stable. 2. At present no obvious adnexal lesion is seen. 3. No other new interval changes since prior study. Electronically Signed by: Ruddy Wallace MD. (05/23/2024 01:57:48 EST)
[2024-05-23 02:08] VITALS: BP 124/81; PULSE 62; O2SAT 96
== END 2024-05-23 02:27 | disposition home or self-care (01) ==
LOC: ED 23:42
DX: R10.2 Pelvic and perineal pain (principal); Z79.85 Long-term (current) use of injectable non-insulin antidiabetic drugs; Z79.899 Other long term (current) drug therapy; Z72.0 Tobacco use
CPT/HCPCS: 74176; 81025; 99283; 99284

== ENCOUNTER 2024-07-14 12:28 | Observation (INO) | payer OTHER ==
[2024-08-04] MEDS ORDERED: Decadron 4 MG ONE (07:48)
[2024-08-04] MEDS ORDERED: TYLENOL EXTRA STRENGTH 500 MG ONE (07:48)
[2024-08-04] MEDS ORDERED: Reglan 10 MG/2 ML ONE (07:48)
[2024-08-04] MEDS ORDERED: Transderm Scop 1.5MG Patch ONE (07:48)
[2024-08-04] MEDS ORDERED: Pepcid 20 MG VIAL IV ONE (07:48)
[2024-08-04] MEDS ORDERED: celeBREX 100 MG ONE (07:49)
[2024-08-04] MEDS ORDERED: Lactated Ringers 1,000 ML IV ONE ×2 (07:49→12:05)
[2024-08-04] MEDS ORDERED: NEURONTIN ONE (07:49)
[2024-08-04 08:41] LABS: HCG URINE TEST NEGATIVE (NEGATIVE)
[2024-08-04] MEDS: Pepcid 20 MG VIAL IV ONE (08:50)
[2024-08-04] MEDS: Reglan 10 MG/2 ML IV ONE (08:50)
[2024-08-04] MEDS: celeBREX 100 MG PO ONE (08:51)
[2024-08-04] MEDS: NEURONTIN PO ONE (08:51)
[2024-08-04] MEDS: Decadron 4 MG PO ONE (08:51)
[2024-08-04] MEDS: TYLENOL EXTRA STRENGTH 500 MG PO ONE (08:51)
[2024-08-04] MEDS: KEFZOL 1 GM** 3 G in Sodium Chloride 0.9% 50 ML 50 ML IV SCH (08:57)
[2024-08-04] MEDS: Lactated Ringers 1,000 ML IV SCH ×2 (08:57→15:42)
[2024-08-04] MEDS: Transderm Scop 1.5MG Patch TOP ONE (08:57)
[2024-08-04 09:11] LABS: Hematocrit 40.3 % (34.1-44.9); Hemoglobin 12.9 g/dL (11.2-15.7); Mean Cell Volume 83.8 fL (79.4-94.8); Mean Corpuscular Hemoglobin 26.8 pg (25.6-32.2); Mean Platelet Volume 8.7 fL (9.4-12.3); Platelet Count 289 x10^3/uL (182-369); Red Blood Count 4.81 x10^6/uL (3.93-5.22); Red Cell Distribution Width 14.4 % (11.7-14.4); White Blood Count 6.6 x10^3/uL (3.98-10.04)
[2024-08-04 09:30] LABS: ANION GAP 12.4 MEQ/L (5-15); BILIRUBIN,TOTAL 0.3 mg/dL (0.2-1.3); Calcium 8.7 mg/dL (8.4-10.2); Creatinine 1 0.83 mg/dL (0.52-1.04); EST GLOMERULAR FILTRATION RATE 89.1 ML/MIN; Potassium 4.1 mmol/L (3.5-5.1); Total Protein 6.7 g/dL (6.3-8.2)
[2024-08-04 10:05] LABS: ABO TYPING O; Antibody Screen NEGATIVE (NEGATIVE); RH TYPING POSITIVE
[2024-08-04] MEDS ORDERED: propofoL IV ONE (10:29)
[2024-08-04] MEDS ORDERED: SUBLIMAZE 100 MCG/2 ML ONE ×3 (10:29→14:04)
[2024-08-04] MEDS ORDERED: ROCURONIUM BROMIDE IV ONE (10:29)
[2024-08-04] MEDS ORDERED: Versed 2 MG/2 ML Injection ONE (10:30)
[2024-08-04] MEDS ORDERED: BRIDION 200MG/2ML IV ONE ×2 (10:38→13:25)
[2024-08-04 13:57] LABS: Appearance Clear (Clear); Bacteria None Seen /HPF (None Seen); Bilirubin Negative (Negative); Blood Negative (Negative); Epithelial Cells Rare /HPF (None Seen); Glucose, Urine Negative (Negative); Hyaline Casts NONE SEEN /LPF (0-2); Ketones Negative (Negative); Leukocyte Esterase Negative (Negative); Nitrite Negative (Negative); Ph 5.5 (4.6-8.0); Protein,Urine Dip Negative (Negative); RBC 0-2 /HPF (0-5); Specific Gravity 1.025 (1.005-1.030); Urobilinogen 0.2 mg/dL (0.2)
[2024-08-04] MEDS ORDERED: Hydromorphone 1 mg/ml Injection ONE (14:05)
[2024-08-04] MEDS ORDERED: TORAdol 30 mg Injection IV PRN (15:34)
[2024-08-04] MEDS ORDERED: Zofran 4 MG/2 ML VIAL IV PRN (15:36)
[2024-08-04] MEDS ORDERED: Narcan 0.4 MG/ML IV PRN (15:45)
[2024-08-04] MEDS ORDERED: PALIPERIDONE 9 MG PO SCH (15:45)
[2024-08-04] MEDS ORDERED: NON-FORMULARY ITEM (Semaglutide [Ozempic] 1 MG/0.75 ML Pen.Injctr) SQ SCH (15:45)
[2024-08-04] MEDS: HYDROMORPHONE 30 MG/30 ML-NS PCA IV PRN (15:59)
[2024-08-04] MEDS ORDERED: Reglan 10 MG/2 ML IV SCH (16:00)
[2024-08-04] MEDS ORDERED: MEDICATION INTERVENTION MC SCH ×3 (16:00)
[2024-08-04] MEDS: DESYREL 50 MG PO SCH (17:21)
[2024-08-04] MEDS: Lexapro PO SCH (17:21)
[2024-08-04] MEDS: CEFAZOLIN 1 GM/100 ML NACL IVPB 1 GM/100 ML IVPB IV SCH (17:21)
[2024-08-04] MEDS: Seroquel 100 MG PO SCH (17:22)
[2024-08-04] MEDS: Mylicon 80MG PO SCH (17:22)
[2024-08-04 18:04] LABS: Hematocrit 38.2 % (34.1-44.9); Hemoglobin 12.1 g/dL (11.2-15.7); Mean Cell Volume 85.1 fL (79.4-94.8); Mean Corpuscular Hemoglobin 26.9 pg (25.6-32.2); Mean Corpuscular Hgb Concent. 31.7 g/dL (32.2-35.5); Mean Platelet Volume 8.9 fL (9.4-12.3); Platelet Count 286 x10^3/uL (182-369); Red Blood Count 4.49 x10^6/uL (3.93-5.22); Red Cell Distribution Width 14.4 % (11.7-14.4); White Blood Count 12.2 x10^3/uL (3.98-10.04)
[2024-08-04] MEDS: Docusate Sodium 100 MG PO SCH (23:27)
[2024-08-05 07:36] VITALS: BP 101/58; PULSE 78; RESP 16; TEMP 98.4; O2SAT 92
[2024-08-05] MEDS ORDERED: MOTRIN 400 MG PO PRN (07:56)
--- NOTE | 2024-08-05 07:59 | PCM.NOTE ---
Date and Time: 08/05/24 0756 Subjective Assessment: pod 1 sp vaginal hysterectomy post repair pt resting in bed able to ambulate and tolerate diet vss afebrile abd; soft pelvic; no active bleeding and packing removed by pt hgb; 12 a/p sp vaginal hysterectomy; posterior colporrhaphy dc home today pending lab results should fu in office in 2 wks Objective Data Vital Signs: Vital Signs - 24 hr Temp Pulse Resp BP BP Pulse Ox 08/05/24 07:35 98.4 F 78 16 101/58 92 L 08/05/24 05:53 95 08/05/24 04:00 98.0 F 69 18 113/61 94 L 08/05/24 00:00 97.8 F 88 20 115/56 96 08/04/24 23:35 20 96 08/04/24 20:00 98.3 F 74 15 135/72 92 L 08/04/24 18:00 97.3 F 78 16 118/65 94 L 08/04/24 16:00 74 16 125/65 94 L 08/04/24 15:59 14 90 L 08/04/24 15:40 97.3 F 78 16 124/76 90 L 08/04/24 15:02 97.3 F 75 14 116/59 90 L 08/04/24 14:40 97.3 F 75 116/59 90 L 08/04/24 14:34 97.3 F 75 14 116/59 90 L 08/04/24 08:51 97.6 F 90 18 134/84 94 L 08/04/24 08:42 97.6 F 90 18 134/84 94 L Pain Assessment - Last Documented Pain Intensity [Anterior] 10 Pain Intensity 10 Intake and Output: Intake & Output 08/02/24 08/03/24 08/04/24 08/05/24 11:59 11:59 11:59 11:59 Intake Total 0 896 Output Total 3025 Balance 0 -2129 Weight 136.6 kg 137.3 kg Lab Results: Lab Results-Last 24 Hours 08/04/24 08/04/24 08/04/24 Range/Units 07:20 09:00 09:00 WBC 6.6 (3.98-10.04) x10^3/uL RBC 4.81 (3.93-5.22) x10^6/uL Hgb 12.9 (11.2-15.7) g/dL Hct 40.3 (34.1-44.9) % MCV 83.8 (79.4-94.8) fL MCH 26.8 (25.6-32.2) pg MCHC 32.0 L (32.2-35.5) g/dL RDW 14.4 (11.7-14.4) % Plt Count 289 (182-369) x10^3/uL MPV 8.7 L (9.4-12.3) fL Sodium 139 (135-145) mmol/L Potassium 4.1 (3.5-5.1) mmol/L Chloride 106 (98-107) mmol/L Carbon Dioxide 25 (22-30) mmol/L Anion Gap 12.4 (5-15) MEQ/L BUN 17 (7-17) mg/dL Creatinine 0.83 (0.52-1.04) mg/dL Estimated GFR 89.1 ML/MIN Glucose 93 (74-106) mg/dL Calcium 8.7 (8.4-10.2) mg/dL Total Bilirubin 0.30 (0.2-1.3) mg/dL AST 28 (14-36) U/L ALT 36 H (0-35) U/L Alkaline Phosphatase 110 (38-126) U/L Serum Total Protein 6.7 (6.3-8.2) g/dL Albumin 4.0 (3.5-5.0) g/dL Urine Color (Yellow) Urine Appearance (Clear) Urine pH (4.6-8.0) Ur Specific [place] (1.005-1.030) Urine Protein (Negative) Urine Glucose (UA) (Negative) mg/dL Urine Ketones (Negative) Urine Blood (Negative) Urine Nitrite (Negative) Urine Bilirubin (Negative) Urine Urobilinogen (0.2) mg/dL Ur Leukocyte Esterase (Negative) U Hyaline Cast (Auto) (0-2) /LPF Urine Microscopic RBC (0-5) /HPF Urine Microscopic WBC (0-5) /HPF Ur Epithelial Cells (None Seen) /HPF Urine Bacteria (None Seen) /HPF Urine HCG, Qual NEGATIVE (NEGATIVE) ABO Group Rh Factor Antibody Screen (NEGATIVE) 08/04/24 08/04/24 08/04/24 Range/Units 09:00 11:49 18:00 WBC 12.2 H (3.98-10.04) x10^3/uL RBC 4.49 (3.93-5.22) x10^6/uL Hgb 12.1 (11.2-15.7) g/dL Hct 38.2 (34.1-44.9) % MCV 85.1 (79.4-94.8) fL MCH 26.9 (25.6-32.2) pg MCHC 31.7 L (32.2-35.5) g/dL RDW 14.4 (11.7-14.4) % Plt Count 286 (182-369) x10^3/uL MPV 8.9 L (9.4-12.3) fL Sodium (135-145) mmol/L Potassium (3.5-5.1) mmol/L Chloride (98-107) mmol/L Carbon Dioxide (22-30) mmol/L Anion Gap (5-15) MEQ/L BUN (7-17) mg/dL Creatinine (0.52-1.04) mg/dL Estimated GFR ML/MIN Glucose (74-106) mg/dL Calcium (8.4-10.2) mg/dL Total Bilirubin (0.2-1.3) mg/dL AST (14-36) U/L ALT (0-35) U/L Alkaline Phosphatase (38-126) U/L Serum Total Protein (6.3-8.2) g/dL Albumin (3.5-5.0) g/dL Urine Color Yellow (Yellow) Urine Appearance Clear (Clear) Urine pH 5.5 (4.6-8.0) Ur Specific [place] 1.025 (1.005-1.030) Urine Protein Negative (Negative) Urine Glucose (UA) Negative (Negative) mg/dL Urine Ketones Negative (Negative) Urine Blood Negative (Negative) Urine Nitrite Negative (Negative) Urine Bilirubin Negative (Negative) Urine Urobilinogen 0.2 (0.2) mg/dL Ur Leukocyte Esterase Negative (Negative) U Hyaline Cast (Auto) NONE SEEN (0-2) /LPF Urine Microscopic RBC 0-2 (0-5) /HPF Urine Microscopic WBC 3-5 (0-5) /HPF Ur Epithelial Cells Rare (None Seen) /HPF Urine Bacteria None Seen (None Seen) /HPF Urine HCG, Qual (NEGATIVE) ABO Group O Rh Factor POSITIVE Antibody Screen NEGATIVE (NEGATIVE) Multi-Disciplinary Progress Notes: Multi-Disciplinary Progress Notes 08/04/24 15:57 Pharmacy Note by Jhony Davis has a category X interaction with Invega and Seroquel. It will be discontinued. Initialized on 08/04/24 15:57 - END OF NOTE 08/04/24 15:52 Respiratory Note by Maira Simmons PATIENT IS SLEEPING AT THIS TIME POST SURGERY Initialized on 08/04/24 15:52 - END OF NOTE 08/04/24 15:51 Respiratory Note by Maira Simmons patient is sleeping at this time. This RT will return for incentive spirometry education. Initialized on 08/04/24 15:51 - END OF NOTE Assessment/Plan (1) Uterine prolapse Current Visit: Yes Status: Acute Code(s): N81.4 - UTEROVAGINAL PROLAPSE, UNSPECIFIED (2) Rectocele Current Visit: Yes Status: Acute Code(s): N81.6 - RECTOCELE (3) Hx of vaginal hysterectomy Current Visit: Yes Status: Acute Code(s): Z90.710 - ACQUIRED ABSENCE OF BOTH CERVIX AND UTERUS (4) History of repair of rectocele Current Visit: Yes Status: Acute Code(s): Z98.890 - OTHER SPECIFIED POSTPROCEDURAL STATES
--- NOTE | 2024-08-05 08:06 | PCM.DS ---
Discharge Summary Date of Admission: 08/04/24 08:10 Admitting Physician: MELISA BASSETT DO Primary Care Provider: TONJA MCNEIL DO Allergies Allergies bee venom protein (honey bee) Allergy (Intermediate, Verified 05/22/24 23:54) Swelling morphine Allergy (Intermediate, Verified 05/22/24 23:54) [facility] Summary - Hospital Course Hospital Course: pt admitted on aug 04 under observation for having undergone vaginal hysterectomy with posterior colporrhaphy secondary to 3rd degree uterine prolapse and moderate rectocele. pt underwent procedure without complication and during postop care did well able to ambulate and tolerate diet. vaginal packing removed by pt and did states mild amount of vaginal bleeding. pt on exam with no bleeding noted in pelvic region and at this time stable for discharge. pt to be given percocet for pain management and was advised to fu in office in 2 wks for postop care. pt was noted having stable hgb at 12 at 6 pm on aug 04 and had refused lab draw in am of aug 05. vital signs stable at this time and at this time stable for discharge. all questions answered to her satisfaction and was advised to call me for any issues that may arise after discharge. - Vitals & Intake/Output Vital Signs: Vital Signs Temperature 98.4 F 08/05/24 07:35 Pulse Rate 78 08/05/24 07:35 Respiratory Rate 16 08/05/24 07:35 Blood Pressure 101/58 08/05/24 07:35 O2 Sat by Pulse Oximetry 92 L 08/05/24 07:35 Intake & Output: Intake & Output 08/02/24 08/03/24 08/04/24 08/05/24 11:59 11:59 11:59 11:59 Intake Total 0 896 Output Total 3025 Balance 0 -2129 Weight 136.6 kg 137.3 kg - Lab Result Diagrams: 08/04/24 18:00 08/04/24 09:00 Lab Results-Last 24 Hrs: Lab Results-Last 24 Hours 08/04/24 08/04/24 08/04/24 Range/Units 07:20 09:00 09:00 WBC 6.6 (3.98-10.04) x10^3/uL RBC 4.81 (3.93-5.22) x10^6/uL Hgb 12.9 (11.2-15.7) g/dL Hct 40.3 (34.1-44.9) % MCV 83.8 (79.4-94.8) fL MCH 26.8 (25.6-32.2) pg MCHC 32.0 L (32.2-35.5) g/dL RDW 14.4 (11.7-14.4) % Plt Count 289 (182-369) x10^3/uL MPV 8.7 L (9.4-12.3) fL Sodium 139 (135-145) mmol/L Potassium 4.1 (3.5-5.1) mmol/L Chloride 106 (98-107) mmol/L Carbon Dioxide 25 (22-30) mmol/L Anion Gap 12.4 (5-15) MEQ/L BUN 17 (7-17) mg/dL Creatinine 0.83 (0.52-1.04) mg/dL Estimated GFR 89.1 ML/MIN Glucose 93 (74-106) mg/dL Calcium 8.7 (8.4-10.2) mg/dL Total Bilirubin 0.30 (0.2-1.3) mg/dL AST 28 (14-36) U/L ALT 36 H (0-35) U/L Alkaline Phosphatase 110 (38-126) U/L Serum Total Protein 6.7 (6.3-8.2) g/dL Albumin 4.0 (3.5-5.0) g/dL Urine Color (Yellow) Urine Appearance (Clear) Urine pH (4.6-8.0) Ur Specific [place] (1.005-1.030) Urine Protein (Negative) Urine Glucose (UA) (Negative) mg/dL Urine Ketones (Negative) Urine Blood (Negative) Urine Nitrite (Negative) Urine Bilirubin (Negative) Urine Urobilinogen (0.2) mg/dL Ur Leukocyte Esterase (Negative) U Hyaline Cast (Auto) (0-2) /LPF Urine Microscopic RBC (0-5) /HPF Urine Microscopic WBC (0-5) /HPF Ur Epithelial Cells (None Seen) /HPF Urine Bacteria (None Seen) /HPF Urine HCG, Qual NEGATIVE (NEGATIVE) ABO Group Rh Factor Antibody Screen (NEGATIVE) 08/04/24 08/04/24 08/04/24 Range/Units 09:00 11:49 18:00 WBC 12.2 H (3.98-10.04) x10^3/uL RBC 4.49 (3.93-5.22) x10^6/uL Hgb 12.1 (11.2-15.7) g/dL Hct 38.2 (34.1-44.9) % MCV 85.1 (79.4-94.8) fL MCH 26.9 (25.6-32.2) pg MCHC 31.7 L (32.2-35.5) g/dL RDW 14.4 (11.7-14.4) % Plt Count 286 (182-369) x10^3/uL MPV 8.9 L (9.4-12.3) fL Sodium (135-145) mmol/L Potassium (3.5-5.1) mmol/L Chloride (98-107) mmol/L Carbon Dioxide (22-30) mmol/L Anion Gap (5-15) MEQ/L BUN (7-17) mg/dL Creatinine (0.52-1.04) mg/dL Estimated GFR ML/MIN Glucose (74-106) mg/dL Calcium (8.4-10.2) mg/dL Total Bilirubin (0.2-1.3) mg/dL AST (14-36) U/L ALT (0-35) U/L Alkaline Phosphatase (38-126) U/L Serum Total Protein (6.3-8.2) g/dL Albumin (3.5-5.0) g/dL Urine Color Yellow (Yellow) Urine Appearance Clear (Clear) Urine pH 5.5 (4.6-8.0) Ur Specific [place] 1.025 (1.005-1.030) Urine Protein Negative (Negative) Urine Glucose (UA) Negative (Negative) mg/dL Urine Ketones Negative (Negative) Urine Blood Negative (Negative) Urine Nitrite Negative (Negative) Urine Bilirubin Negative (Negative) Urine Urobilinogen 0.2 (0.2) mg/dL Ur Leukocyte Esterase Negative (Negative) U Hyaline Cast (Auto) NONE SEEN (0-2) /LPF Urine Microscopic RBC 0-2 (0-5) /HPF Urine Microscopic WBC 3-5 (0-5) /HPF Ur Epithelial Cells Rare (None Seen) /HPF Urine Bacteria None Seen (None Seen) /HPF Urine HCG, Qual (NEGATIVE) ABO Group O Rh Factor POSITIVE Antibody Screen NEGATIVE (NEGATIVE) - Procedures and Test Procedures and Tests throughout Hospitalization: Therapy Orders & Screens 08/04/24 15:15 Incentive Spirometry UD Comment: Diagnosis: Symptomatic Uterine Prolapse 08/04/24 16:00 Oxygen Nasal Cannula 2 lpm Comment: Diagnosis: Symptomatic Uterine Prolapse Final Diagnosis/Problem List - Final Discharge Diagnosis/Problem (1) Uterine prolapse Current Visit: Yes Status: Acute Code(s): N81.4 - UTEROVAGINAL PROLAPSE, UNSPECIFIED (2) Rectocele Current Visit: Yes Status: Acute Code(s): N81.6 - RECTOCELE (3) Hx of vaginal hysterectomy Current Visit: Yes Status: Acute Code(s): Z90.710 - ACQUIRED ABSENCE OF BOTH CERVIX AND UTERUS (4) History of repair of rectocele Current Visit: Yes Status: Acute Code(s): Z98.890 - OTHER SPECIFIED POSTPROCEDURAL STATES - Discharge Disposition: Home, Self-Care Condition: Stable Prescriptions: New Oxycodone HCl/Acetaminophen [Percocet 5-325 mg Tablet] 1 each PO Q6HPRN PRN #20 tablet MDD 4 PRN Reason: postoperative pain management No Action Escitalopram Oxalate [Lexapro] 1 tab PO DAILY Trazodone HCl 100 mg PO DAILY Quetiapine Fumarate 100 mg [Seroquel 100 MG] 100 mg PO DAILY Semaglutide [Ozempic] 1 mg SQ UD Paliperidone [Invega] 9 mg PO UD Follow up with: TONJA MCNEIL DO [Primary Care Provider] - MELISA BASSETT DO [ACTIVE STAFF] - 2 weeks (should fu in office in 2 wks no heavy lifting no driving for a week no vaginal intercourse for 8 wks should call me for any issues that may arise)
[2024-08-05 08:47] LABS: Hematocrit 34.7 % (34.1-44.9); Hemoglobin 11.2 g/dL (11.2-15.7); Mean Corpuscular Hemoglobin 27.1 pg (25.6-32.2); Mean Corpuscular Hgb Concent. 32.3 g/dL (32.2-35.5); Mean Platelet Volume 8.7 fL (9.4-12.3); Platelet Count 279 x10^3/uL (182-369); Red Blood Count 4.13 x10^6/uL (3.93-5.22); Red Cell Distribution Width 14.6 % (11.7-14.4); White Blood Count 15.2 x10^3/uL (3.98-10.04)
[2024-08-05 09:02] LABS: ALBUMIN 3.8 g/dL (3.5-5.0); ANION GAP 12.1 MEQ/L (5-15); BILIRUBIN,TOTAL 0.4 mg/dL (0.2-1.3); Calcium 8.8 mg/dL (8.4-10.2); Creatinine 1 0.82 mg/dL (0.52-1.04); EST GLOMERULAR FILTRATION RATE 90.4 ML/MIN; Potassium 3.5 mmol/L (3.5-5.1); Total Protein 6.4 g/dL (6.3-8.2)
[2024-08-05] MEDS: PERCOCET TABLET 5/325MG PO PRN (09:04)
[2024-08-05] MEDS: ENOXAPARIN SODIUM SQ SCH (09:05)
--- NOTE | 2024-08-06 09:40 | OP ---
SURGERY DATE/TIME: 08/04/2024 0722-0339 PREOPERATIVE DIAGNOSIS: Symptomatic uterine prolapse, third degree, and moderate rectocele. POSTOPERATIVE DIAGNOSIS: Symptomatic uterine prolapse, third degree, and moderate rectocele. PROCEDURE: Vaginal hysterectomy and posterior colporrhaphy. SURGEON: Vazquez Boswell DO COMMERCIAL DOOR INSTALLER: Sowmya Murphy ANESTHESIA: General. ESTIMATED BLOOD LOSS: 100 mL COMPLICATIONS: None. INDICATIONS: The risks, benefits, indications, and alternatives of the procedure were reviewed with the patient prior to the procedure. The patient understood the risks of infection, bleeding, bowel injury, bladder injury, ureteral injury, pelvic infection, and thromboembolic disorder associated with the surgery as well as possible future prolapse of the vaginal vault. The patient also understands the risk of possible future rectocele as well as future cystocele. DESCRIPTION OF PROCEDURE AND FINDINGS: At this point, the patient was taken to the operating room, given general sedation, and placed in the dorsal lithotomy position, prepped and draped in the usual sterile fashion. A weighted speculum was then placed into the vagina and the cervix was grasped with a single-tooth tenaculum. The cervix was then injected circumferentially with diluted vasopressin and approximately 15 mL was used. The cervix was then circumferentially incised with a scalpel and the bladder dissected off the pubovesical cervical fascia anteriorly with a sponge stick and the Metzenbaum scissors. The anterior cul-de-sac was then entered sharply. The same procedure was performed posteriorly and the posterior cul-de-sac was entered sharply without difficulty. At this point, a Rosario clamp was then placed over the uterosacral ligaments on either side. These were then transected and suture ligated with 0 Vicryl sutures. Again, hemostasis was assured. The cardinal ligaments were then clamped on both sides, transected and suture ligated in a similar fashion. The uterine arteries and the broad ligament were then similarly clamped with Rosario clamp, transected and suture ligated with 0 Vicryl sutures on both sides. Again, hemostasis was visualized. Both cornea were clamped with Rosario clamp, transected, sutured and the uterus delivered. These pedicles were then suture ligated with excellent hemostasis. The peritoneum was then closed with a pursestring suture of 0 Vicryl. The vaginal cuff angles were closed with a [id number] stitches of 0 Vicryl on both sides and transfixed to the ipsilateral cardinal and uterosacral ligaments. The remainder of the vaginal cuff was closed with [id number] stitches of 0 Vicryl in an interrupted fashion. From this point, the rectocele was identified and a dilute vasopressin solution was infiltrated under the posterior vaginal mucosa in the midline in each the perineal bodies. A transverse incision was put into the peritoneum. The posterior vaginal wall was opened vertically in midline up to the apex of the rectocele. Cut edges were then held and splayed laterally with a series of Allis clamps. The open vaginal mucosa was then dissected laterally with a combination of sharp and blunt dissection exposing the perirectal fascia. The perirectal fascia was then reapproximated with interrupted 2-0 Vicryl sutures to draw the lateral poles together and tuck the rectocele back. Deep interrupted sutures of 0 Vicryl were used to reapproximate the fibers of the levator ani muscles. The excess vaginal mucosa was trimmed. The posterior vaginal wall was then closed with a running locked 0 Vicryl through to the hymenal tags. The superficial perineal muscles were closed with a running unlocked 0 Vicryl and the perineal skin was closed with a running subcuticular 2-0 Vicryl suture. From this point, hemostasis was obtained and again the anterior vaginal mucosa was closed with a continuous stitch of 2-0 Vicryl suture. At this point, patient tolerated the procedure well. All instruments and laps were accounted for x2. Patient was then taken out of the dorsal lithotomy position, was taken out of anesthesia, was then taken to the recovery room in stable condition.
== END 2024-08-05 10:23 | disposition home or self-care (01) ==
LOC: EDSTATUS 14:19 → MED SURG 08-04 08:10
PROVIDERS: ADMIT Obstetrics & Gynecology; ATTEND Obstetrics & Gynecology
DX: N81.3 Complete uterovaginal prolapse (principal)
CPT/HCPCS: 36415; 57250; 58260; 80053; 81001; 81025; 85027; 86850; 86900; 86901; 87086; 93268; 94760; G0378; J0690; J1171; J1650; J2250; J2704; J3010; A9270-GY